=== PATIENT | male | born 1955 | race Caucasian/White ===

== ENCOUNTER → 2017-06-07 | Outpatient (CLI) | payer OTHER ==
[~2017-06-07] MED LIST: ASPI325 PO; ATOR20 PO; Ativan0.5 MG PO; CLON1 PO; DILT30; DULO30 PO; DULO60 PO; HYDACE10B PO; IRBHYD150; LORA1; LORA2 PO; METO25ER; METO25ER PO; METO50ER PO; NAPR550 PO; Nicoderm Cq1 EAC1 TOP; OMEP20ER PO; ONDA8 PO; OPDIVO40 MG/4 ML; PANT20; PRED5 PO; RAMI5 PO; ROSU10TA PO; TAMS.4ER PO; VOTRIENT200 MG PO
== END ==
LOC: PLD 14:02
DX: C67.2 Malignant neoplasm of lateral wall of bladder (principal)
CPT/HCPCS: 88108

== ENCOUNTER 2018-05-19 07:26 | Inpatient (IN) | payer OTHER ==
[~2018-05-19] VITALS: Ht 177.8 cm; Wt 84.5 kg
[2018-05-19 07:45] LABS: Calcium, Ionized (POC) 1.14 mmol/L (1.10-1.46); Chloride (POC) 101 mmol/L (98-108); Creatinine (POC) 1.3 mg/dL (0.8-1.3); Glucose (ISTAT POC) 109 mg/dL (70-99); Potassium (POC) 4.2 mmol/L (3.5-5.5); Sodium (POC) 137 mmol/L (135-148); Total CO2 (POC) 24 mmol/L (21-32)
[2018-05-19 07:52] LABS: Hematocrit 47.1 % (37.0-53.0); Hemoglobin 15.9 g/dL (13.5-17.5); Mean Corpuscular HGB 31.8 pg (26.0-34.0); Mean Corpuscular HGB Conc 33.8 g/dL (31.5-36.5); Mean Corpuscular Volume 94 fL (80-100); Mean Platelet Volume 9.2 fL (9.1-12.4); Platelet Count 408 K/mm3 (150-400); RDW Coefficient Variation 14.5 % (11.7-14.2); RDW Standard Deviation 50.1 fL (35.1-46.3); White Blood Cell Count 10.14 K/mm3 (4.00-11.30)
[2018-05-19 08:16] LABS: International Normalized Ratio 0.93; Prothrombin Time Results 9.4 Sec (9.7-11.5)
[2018-05-19 08:35] LABS: Magnesium, Blood 1.9 mg/dL (1.6-2.4); Troponin I 0.223 ng/mL (0.000-0.040); Very Low Density Lipoprot Chol 46 mg/dL (6-32)
[2018-05-19 08:38] LABS: LDL/HDL RATIO 4.2
[2018-05-19 08:39] LABS: Alanine Aminotransfer (ALT/SGP 17 U/L (12-78); Albumin, Blood 3.7 g/dL (3.4-5.0); Albumin/Globulin Ratio 0.9 (0.8-1.8); Alk Phos 84 U/L (50-136); Anion Gap 11 mmol/L (6-16); Aspartate Aminotrans (AST/SGOT 18 U/L (12-37); Bilirubin, Total 0.6 mg/dL (0.1-1.0); Blood Urea Nitrogen 17 mg/dL (8-24); Bun/Creatinine Ratio 12.6 (12.0-20.0); CHOL/HDL RATIO 6.2; CO2, Blood 24 mmol/L (21-32); Calcium, Blood 9.9 mg/dL (8.5-10.1); Chloride, Blood 101 mmol/L (98-108); Cholesterol 303 mg/dL (50-200); Creatinine, Blood 1.35 mg/dL (0.60-1.20); Globulin, Blood 4.1 g/dL (2.2-4.0); Glomerular Filtration Rate 57 (60-); Glucose, Blood 101 mg/dL (70-99); HDL Cholesterol 49 mg/dL (>39); Low Density Lipoprotein Chol 208 mg/dL (0-110); Potassium, Blood 4.1 mmol/L (3.5-5.5); Sodium, Blood 136 mmol/L (136-145); Total Protein, Blood 7.8 g/dL (6.4-8.2); Triglycerides 231 mg/dL (30-160)
--- NOTE | 2018-05-19 09:13 | NUR ---
PT STATES CP IS 1/10, NTG GTT DECREASED TO 10.
--- NOTE | 2018-05-19 10:33 | NUR ---
PT ADMITTED TO ICU POST ANGIOGRAM FOR STEMI. 2 STENTS PLACED TO M/LAD. PT AWAKE AND ALERT. PT VERY EMOTIONAL, TEARFUL, GREATFUL. PT DENIES C/O PAIN, SOB, CHEST PRESSURE, NAUSEA. TR BAND TO R WRIST WNL, CIRC CHECK TO R WRIST WNL. PT POOR HISTORIAN AND BECAME VERY TEARFUL AND DISTRESSED WHEN HOME MEDICATIONS REVIEWED, WILL COMPLETE LATER WHEN PT HAS RELAXED MORE. DR GARCIA AT BEDSIDE, POST ANGIO EKG REVIEWED. NS AT 50CC/HR, HEPARIN GTT TO START.
--- NOTE | 2018-05-19 10:55 | NUR ---
HEPARIN GTT STARTED 13/UNIT/KG/HR. ESCORT VEHICLE DRIVER AT BEDSIDE.
--- NOTE | 2018-05-19 11:01 | NUR ---
TROPONIN CALLED IN TO DR GARCIA, NO NEED TO CALL NEXT TROPONIN IN TO DR IF NEXT TROPONIN IS LESS THAN [address] GARCIA.
--- NOTE | 2018-05-19 13:14 | NUR ---
AIR SLOWLY RELEASED FROM TR BAND OVER 45MIN. BAND ON WRIST; NO BLEEDING OR SWELLING, OR PAIN TO SITE. DR SIMMONS IN TO SEE PT.
--- NOTE | 2018-05-19 13:34 | NUR ---
ECHOCARDIOGRAM COMPLETE
--- NOTE | 2018-05-19 16:23 | NUR ---
TR BAND REMOVED, CLEAR OP-SITE PLACED OVER PUNCTURE SITE, WRIST IMMOBILIZER PLACED. PT GIVEN INSTRUCTIONS AGAIN, NOT TO USE RIGHT ARM/WRIST
--- NOTE | 2018-05-19 19:18 | NUR ---
DR GARCIA CALLED AT 1900 TO INFORM OF TROPONIN 126, PT C/O HEART BURN TO UPPER ESOPHAGUS AREA, 15 BEAT RUN OF VT, SOME PVC'S T/O SHIFT. COMPLETE UPDATE ON PT'S STATUS GIVEN. REPORT GIVEN TO MAISHA MARKS.
--- NOTE | 2018-05-19 19:30 | NUR ---
ASSUMED CARE BEDSIDE REPORT RECIEVED. PT IS RESTING IN BED WITH CPAP IN PLACE. PT AWAKENS EASILY AND IS ALERT AND ORIENTED. PT COMPLAINS OF HEART BURN, BUT DENIES CHEST PRESSURE/PAIN OR NAUSEA. DAY SHIFT RN CALLED DR GARCIA TO NOTIFY OF CRITICAL TROPONIN AND PT COMPLAINTS. ORDERS RECIEVED. WILL MEDICATE PER ORDERS. VITAL SIGNS STABLE AT THIS TIME. PT SINUS TOBI/ NSR. HEPARIN GTT INFUSING AT 13 UNITS/KG/HR PER PHARMACY, NS INFUSING AT 50 ML/HR. PT USING URINAL TO VOID WELL. WILL CONTINUE TO MONITOR.
[2018-05-19 19:45] LABS: Magnesium, Blood 1.8 mg/dL (1.6-2.4)
--- NOTE | 2018-05-20 00:04 | NUR ---
UPDATE PT REPORTS HEART BURN/INDIGESTION HAS RESOLVED. PT DENIES CHEST PAIN OR PRESSURE. PT SLEEPING OFF AND ON UP TO THIS POINT. VSS. WILL CONTINUE TO MONITOR.
[2018-05-20 04:01] LABS: BASOPHILS ABSOLUTE AUTO 0.17 K/mm3 (0.00-0.23); BASOPHILS PERCENT AUTO 2 % (0-2); EOSINOPHILS ABSOLUTE AUTO 0.98 K/mm3 (0.00-0.68); EOSINOPHILS PERCENT AUTO 9 % (0-6); Hematocrit 44.6 % (37.0-53.0); Hemoglobin 15.1 g/dL (13.5-17.5); IMMATURE GRAN ABSOLUTE AUTO 0.03 K/mm3 (0.00-0.10); IMMATURE GRAN PERCENT AUTO 0 % (0-1); LYMPHOCYTES ABSOLUTE AUTO 2.29 K/mm3 (0.84-5.20); LYMPHOCYTES PERCENT AUTO 22 % (21-46); MONOCYTES ABSOLUTE AUTO 1.48 K/mm3 (0.16-1.47); MONOCYTES PERCENT AUTO 14 % (4-13); Mean Corpuscular HGB 31.7 pg (26.0-34.0); Mean Corpuscular HGB Conc 33.9 g/dL (31.5-36.5); Mean Corpuscular Volume 94 fL (80-100); Mean Platelet Volume 9.5 fL (9.1-12.4); NEUTROPHILS ABSOLUTE AUTO 5.56 K/mm3 (1.96-9.15); NEUTROPHILS PERCENT AUTO 53 % (41-73); Platelet Count 389 K/mm3 (150-400); RDW Coefficient Variation 14.6 % (11.7-14.2); RDW Standard Deviation 50.7 fL (35.1-46.3); Red Blood Cell Count 4.76 M/mm3 (4.30-5.90); White Blood Cell Count 10.51 K/mm3 (4.00-11.30)
[2018-05-20 04:47] LABS: Alanine Aminotransfer (ALT/SGP 44 U/L (12-78); Albumin, Blood 3.3 g/dL (3.4-5.0); Albumin/Globulin Ratio 0.9 (0.8-1.8); Alk Phos 70 U/L (50-136); Anion Gap 10 mmol/L (6-16); Aspartate Aminotrans (AST/SGOT 236 U/L (12-37); Blood Urea Nitrogen 12 mg/dL (8-24); Bun/Creatinine Ratio 9.7 (12.0-20.0); CO2, Blood 24 mmol/L (21-32); Calcium, Blood 8.9 mg/dL (8.5-10.1); Chloride, Blood 105 mmol/L (98-108); Creatinine, Blood 1.24 mg/dL (0.60-1.20); Globulin, Blood 3.7 g/dL (2.2-4.0); Glomerular Filtration Rate >60 (60-); Glucose, Blood 112 mg/dL (70-99); Potassium, Blood 4.3 mmol/L (3.5-5.5); Sodium, Blood 139 mmol/L (136-145)
--- NOTE | 2018-05-20 06:11 | NUR ---
SHIFT SUMMARY PT SLEPT OFF AND ON THROUGHOUT MOST OF THIS SHIFT. PT HAS REMAINED ON CPAP TO ROOM AIR WHILE SLEEPING THROUGHOUT THE NIGHT. VITAL SIGNS HAVE REMAINED STABLE. PT HAS CONTINUED TO DENY CHEST PAIN OR PRESSURE, NAUSEA, OR HEARTBURN. TROPONIN TRENDING DOWN. MORNING ECG SHOWES ST CHANGES WHEN COMPARED TO PREVIOUS ECG'S. PT WITH ONE 5 BEAT RUN OF V TACH EARLY IN THE SHIFT, OTHERWISE HAS REMAINED IN NSR. RIGHT RADIAL ACCESS SITE REMAINS C/D/I, SOFT, NON TENDER, WITH ARMBOARD IN PLACE. HEPARIN GTT INCREASED TO 16 UNITS/KG/HR PER PHARMACY ORDERS AND BOLUS GIVEN PER ORDERS. PT VOIDING WELL WITH URINAL. PT TOLERATING PO FLUIDS WELL. WILL CONTINUE TO MONITOR AND REPORT OFF TO ONCOMING RN.
--- NOTE | 2018-05-20 07:24 | NUR ---
REPORT TAKEN, PT ASSESSED. PT AWAKE AND ALERT. DENIES ALL COMPLAINTS, DENIES C/O CHEST PAIN, CHEST PRESSURE, SOB, NAUSEA, HEART BURN. VSS. DR GARCIA CALLED AND GIVEN UPDATE ON PT STATUS INCLUDING NEW CHANGES IN EKG THIS AM. NO NEW ORDERS. WILL CONT TO MONITOR CLOSELY.
--- NOTE | 2018-05-20 09:48 | NUR ---
DR GARCIA IN TO SEE PT. PT MAY CHANGE STATUS TO PCU IF HE CONTINUES TO DO WELL TODAY. POSSIBLE DISCHARGE HOME TOMORROW. AT BEDSIDE; UPDATED
--- NOTE | 2018-05-20 13:51 | NUR ---
DR GARCIA CALLED AND GIVEN UPDATE. PT OOB TO CHAIR FOR 4 HOURS, TOLERATED WELL. ATE LUNCH. FAMILY AT BEDSIDE. PT W/O COMPLAINTS. PT NOW PCU STATUS
--- NOTE | 2018-05-20 22:36 | NUR ---
ASSUMED CARE OF PT PT ALERT AND ORIENTED LAYING IN BED RESTING USING HOME CPAP. PT DENIES PAIN AT THIS TIME. SEE FULL SHIFT ASSESSMENT.
[2018-05-21 03:54] LABS: Hematocrit 44.4 % (37.0-53.0); Hemoglobin 15.2 g/dL (13.5-17.5); Mean Corpuscular HGB 32.1 pg (26.0-34.0); Mean Corpuscular HGB Conc 34.2 g/dL (31.5-36.5); Mean Corpuscular Volume 94 fL (80-100); Mean Platelet Volume 9.3 fL (9.1-12.4); Platelet Count 352 K/mm3 (150-400); RDW Coefficient Variation 14.6 % (11.7-14.2); RDW Standard Deviation 50.4 fL (35.1-46.3); Red Blood Cell Count 4.74 M/mm3 (4.30-5.90); White Blood Cell Count 11.08 K/mm3 (4.00-11.30)
[2018-05-21 04:15] LABS: Albumin, Blood 3.3 g/dL (3.4-5.0); Albumin/Globulin Ratio 0.8 (0.8-1.8); Bilirubin, Total 0.8 mg/dL (0.1-1.0); Bun/Creatinine Ratio 9.2 (12.0-20.0); Creatinine, Blood 1.3 mg/dL (0.60-1.20); Total Protein, Blood 7.3 g/dL (6.4-8.2)
--- NOTE | 2018-05-21 06:25 | NUR ---
SHIFT SUMMARY NO ACUTE CHANGES OVERNIGHT. PT SLEPT ENTIRE NIGHT WITH CPAP. PT DENIES CHEST PAIN N/V. HEPARIN AT 16 UN/KG/HR. VITAL SIGNS REMAIN STABLE. WILL REPORT TO DAYSHIFT NURSE.
--- NOTE | 2018-05-21 08:46 | NUR ---
ASSUMED CARE OF PT THIS AM PT. ALERT AND ORIENTED. ASSISTED PT WITH LINES TO DANGLE AT BEDSIDE AND WAS ABLE TO TRANSFER SELF TO BEDSIDE CHAIR WITH OUT DIFFICULTY. PT. UP TO BEDSIDE CHAIR FOR BREAKFAST. RIGHT RADIAL SITE WNL, NO SWELLING/ BRUISING NOTED. PT VSS THIS AM DENIES ANY CHEST PAIN OR PRESSURE. REMAINS ON HEPARIN GTT AT THIS TIME AT 16U/KG/HR. URINAL AT BEDSIDE. CALL LIGHT IN REACH.
[2018-05-21] MEDS ORDERED: ATOR40TA PO (10:43)
[2018-05-21] MEDS ORDERED: ASPI81CH PO (10:44)
[2018-05-21] MEDS ORDERED: CALCA400CH PO (10:44)
[2018-05-21] MEDS ORDERED: FAMO20 PO (10:45)
[2018-05-21] MEDS ORDERED: CLOP75 PO (10:45)
[2018-05-21] MEDS ORDERED: METO25ER PO (10:46)
--- NOTE | 2018-05-21 11:10 | NUR ---
PT DISCHARGED HOME MEDICATIONS CALLED IN TO [facility] PER PT REQUEST. PT VSS UPON DISCHARGE. DISCUSSED WITH PT IN DETAIL MEDICATION CHANGES. PT PLACED STENT CARD IN [place]. INITIAL FOLLOW UP SCHEDULED WITH CARDIOLOGY. [facility] CONTACTED FOR REFERRAL THEY WILL CALL PT TO SCHEDULE APPOINTMENT. ENCOURGED PT TO RETURN FOR WORSENING SYMPTOMS. TO DRIVE PT HOME. PT ABLE TO DRESS SELF AND REQUESTED TO AMBULATE TO EXIT.
== END 2018-05-21 11:05 | disposition home or self-care (01) | DRG 247 ==
LOC: ER 07:26 → ICUW 08:14 → ICUE 08:14
PROVIDERS: Emergency Medicine; ADMIT Emergency Medicine
PROC: 027035Z Dilation of Coronary Artery, One Artery with Two Drug-eluting Intraluminal Devices, Percutaneous Approach (ICD-10-PCS; principal; 2018-05-19)
PROC: B2111ZZ Fluoroscopy of Multiple Coronary Arteries using Low Osmolar Contrast (ICD-10-PCS; 2018-05-19)
DX: I21.09 ST elevation (STEMI) myocardial infarction involving other coronary artery of anterior wall (principal); I42.9 Cardiomyopathy, unspecified; I12.9 Hypertensive chronic kidney disease with stage 1 through stage 4 chronic kidney disease, or unspecified chronic kidney disease; N18.3 Chronic kidney disease, stage 3 (moderate); I25.10 Atherosclerotic heart disease of native coronary artery without angina pectoris; E78.5 Hyperlipidemia, unspecified; G47.33 Obstructive sleep apnea (adult) (pediatric); Z85.53 Personal history of malignant neoplasm of renal pelvis; Z92.21 Personal history of antineoplastic chemotherapy; Z95.5 Presence of coronary angioplasty implant and graft
CPT/HCPCS: 36415; 71045; 80047; 80053; 80061; 83735; 84132; 84484; 85014; 85025; 85027; 85347; 85610; 85730; 86850; 86900; 86901; 93005; 93010; 93458; 96374; 96375; 99152; 99153; 99285-25; C1725; C1757; C1769; C1874; C1887; C1894; C8923; C9606; J1644; J2250; J2270; J2405; J3010; J7030; J7040; Q9957; Q9967

== ENCOUNTER 2018-05-27 16:41 | Observation (INO) | payer OTHER ==
[~2018-05-27] VITALS: Ht 177.8 cm; Wt 85.6 kg
[~2018-05-27 16:41] MED LIST changes: +ASPI81CH PO; +ATOR40TA PO; +CALCA400CH PO; +CLOP75 PO; +FAMO20 PO
[2018-05-27 17:15] LABS: Creatinine (POC) 1.5 mg/dL (0.8-1.3)
[2018-05-27 17:15] LABS: BASOPHILS ABSOLUTE AUTO 0.16 K/mm3 (0.00-0.23); BASOPHILS PERCENT AUTO 2 % (0-2); EOSINOPHILS ABSOLUTE AUTO 0.44 K/mm3 (0.00-0.68); EOSINOPHILS PERCENT AUTO 5 % (0-6); Hematocrit 41.7 % (37.0-53.0); Hemoglobin 13.8 g/dL (13.5-17.5); IMMATURE GRAN ABSOLUTE AUTO 0.06 K/mm3 (0.00-0.10); IMMATURE GRAN PERCENT AUTO 1 % (0-1); LYMPHOCYTES ABSOLUTE AUTO 1.92 K/mm3 (0.84-5.20); LYMPHOCYTES PERCENT AUTO 20 % (21-46); MONOCYTES ABSOLUTE AUTO 0.84 K/mm3 (0.16-1.47); MONOCYTES PERCENT AUTO 9 % (4-13); Mean Corpuscular HGB Conc 33.1 g/dL (31.5-36.5); Mean Platelet Volume 9.6 fL (9.1-12.4); NEUTROPHILS ABSOLUTE AUTO 6.33 K/mm3 (1.96-9.15); NEUTROPHILS PERCENT AUTO 65 % (41-73); Platelet Count 405 K/mm3 (150-400); RDW Coefficient Variation 14.3 % (11.7-14.2); RDW Standard Deviation 51.3 fL (35.1-46.3); Red Blood Cell Count 4.31 M/mm3 (4.30-5.90); White Blood Cell Count 9.75 K/mm3 (4.00-11.30)
[2018-05-27 17:21] LABS: Mean Corpuscular Volume 97 fL (80-100)
[2018-05-27 17:32] LABS: International Normalized Ratio 0.93; Prothrombin Time Results 9.7 Sec (9.7-11.5)
[2018-05-27 17:41] LABS: Albumin, Blood 3.6 g/dL (3.4-5.0); Albumin/Globulin Ratio 0.9 (0.8-1.8); Bilirubin, Total 0.3 mg/dL (0.1-1.0); Bun/Creatinine Ratio 16.9 (12.0-20.0); Calcium, Blood 8.5 mg/dL (8.5-10.1); Creatinine, Blood 1.3 mg/dL (0.60-1.20); Globulin, Blood 4.2 g/dL (2.2-4.0); Potassium, Blood 4.5 mmol/L (3.5-5.5); Total Protein, Blood 7.8 g/dL (6.4-8.2)
--- NOTE | 2018-05-27 21:40 | NUR ---
NEW ADMIT FROM ER FOR GIB. PT WAS GIVEN PROTONIX BOLUS AND DRIP INFUSING. DENIES ANY COMPLAINTS. ALREADY CALLED AND SPOKE WITH DR. LEWIS WHO STATES WILL BE IN TOMORROW TO CONSULT WITH PT.
[2018-05-27 23:22] LABS: Hematocrit 41.9 % (37.0-53.0); Hemoglobin 14.1 g/dL (13.5-17.5)
--- NOTE | 2018-05-28 02:59 | NUR ---
TELE MONITOR CALLED STATES PT DROPPED TO 39HR. PT DENIES ANY COMPLAINTS. CALLED AND SPOKE WITH DR. HARDEN WHO DC'D THE BETA JOSE. WILL CONT TO MONITOR FOR CHANGES.
--- NOTE | 2018-05-28 05:26 | NUR ---
NEW ADMIT THIS SHIFT. NO SIG CHANGES. H/H IS STABLE. DENIES ANY PAIN. PT HAS HAD NO BM SINCE ARRIVAL TO UNIT. DR. LEWIS HAS BEEN CONTACTED AND WILL SEE PT TODAY. CONT IV PROTONIX DRIP, DC'D BETA JOSE FOR BRADYCARDIA PER DR. HARDEN. CALL LIGHT IN REACH.
[2018-05-28 06:16] LABS: BASOPHILS ABSOLUTE AUTO 0.17 K/mm3 (0.00-0.23); BASOPHILS PERCENT AUTO 2 % (0-2); EOSINOPHILS ABSOLUTE AUTO 0.91 K/mm3 (0.00-0.68); EOSINOPHILS PERCENT AUTO 10 % (0-6); Hematocrit 43.1 % (37.0-53.0); Hemoglobin 14.1 g/dL (13.5-17.5); IMMATURE GRAN ABSOLUTE AUTO 0.04 K/mm3 (0.00-0.10); IMMATURE GRAN PERCENT AUTO 1 % (0-1); LYMPHOCYTES ABSOLUTE AUTO 2.43 K/mm3 (0.84-5.20); LYMPHOCYTES PERCENT AUTO 28 % (21-46); MONOCYTES ABSOLUTE AUTO 1.08 K/mm3 (0.16-1.47); MONOCYTES PERCENT AUTO 12 % (4-13); Mean Corpuscular HGB 31.8 pg (26.0-34.0); Mean Corpuscular HGB Conc 32.7 g/dL (31.5-36.5); Mean Corpuscular Volume 97 fL (80-100); Mean Platelet Volume 9.8 fL (9.1-12.4); NEUTROPHILS ABSOLUTE AUTO 4.16 K/mm3 (1.96-9.15); NEUTROPHILS PERCENT AUTO 47 % (41-73); Platelet Count 401 K/mm3 (150-400); RDW Coefficient Variation 14.5 % (11.7-14.2); RDW Standard Deviation 51.8 fL (35.1-46.3); Red Blood Cell Count 4.44 M/mm3 (4.30-5.90); White Blood Cell Count 8.79 K/mm3 (4.00-11.30)
[2018-05-28 07:16] LABS: Albumin, Blood 3.4 g/dL (3.4-5.0); Albumin/Globulin Ratio 0.9 (0.8-1.8); Calcium, Blood 8.7 mg/dL (8.5-10.1); Creatinine, Blood 1.25 mg/dL (0.60-1.20); Globulin, Blood 3.6 g/dL (2.2-4.0); Potassium, Blood 4.1 mmol/L (3.5-5.5)
[2018-05-28 07:17] LABS: Bilirubin, Total 0.5 mg/dL (0.1-1.0)
[2018-05-28] MEDS ORDERED: OMEPRAZOLE MAGN20 MG PO (14:41)
--- NOTE | 2018-05-28 15:06 | NUR ---
DISCHARGE SUMMARY PT A&OX4, VSS, WALKED OFF LEFT FLOOR WITH ALL PERSONAL POSSESSIONS INCLUDING DISCHARGE PACKET TO GO HOME. DISCHARGE INSTRUCTIONS PROVIDED. PT REP UNDERSTANDING THOSE INSTRUCTIONS INCLUDING NEW SCRIPT AT [facility], FU APPT AT [facility] ALREADY SCHEDULED. 2 TIFF YOUNG.
== END 2018-05-28 16:20 | disposition home or self-care (01) ==
LOC: ER 16:41 → SURS 16:42 → ERHOLD 16:42 → SURS 20:13
PROVIDERS: Emergency Medicine; ADMIT Internal Medicine
DX: K92.1 Melena (principal); I12.9 Hypertensive chronic kidney disease with stage 1 through stage 4 chronic kidney disease, or unspecified chronic kidney disease; N18.3 Chronic kidney disease, stage 3 (moderate); C64.9 Malignant neoplasm of unspecified kidney, except renal pelvis; I25.10 Atherosclerotic heart disease of native coronary artery without angina pectoris; E78.5 Hyperlipidemia, unspecified; G47.33 Obstructive sleep apnea (adult) (pediatric); Z79.52 Long term (current) use of systemic steroids; Z79.899 Other long term (current) drug therapy; Z95.5 Presence of coronary angioplasty implant and graft; Z85.528 Personal history of other malignant neoplasm of kidney; Z90.5 Acquired absence of kidney; Z99.89 Dependence on other enabling machines and devices; Z79.82 Long term (current) use of aspirin; Z79.02 Long term (current) use of antithrombotics/antiplatelets
CPT/HCPCS: 36415; 80053; 82272; 82565; 85014; 85018; 85025; 85610; 85730; 86850; 86900; 86901; 93005; 93010; 96365; 96366; 96376; 99285-25; C9113; G0378

== ENCOUNTER → 2018-07-14 | Outpatient (CLI) | payer OTHER ==
[~2018-07-14] MED LIST changes: +OMEPRAZOLE MAGN20 MG PO
[2018-07-14 14:10] LABS: Stool Occult Bld Immuno 1 Positive (NEGATIVE)
== END | disposition home or self-care (01) ==
LOC: LAB 09:31 → LAB SHORT 09:31
PROVIDERS: Family Medicine
DX: R19.5 Other fecal abnormalities (principal)
CPT/HCPCS: 82274

== ENCOUNTER 2018-08-13 10:31 | Day surgery (SDC) | payer OTHER ==
[~2018-08-13] VITALS: Ht 177.8 cm; Wt 91.0 kg
--- NOTE | 2018-08-13 12:13 | NUR ---
08/13/[address] CONSULTED. OK TO PROCEED WITH NURSE SEDATION WITH FENTANYL AND VERSED. DR. LEWIS AGREES.
--- NOTE | 2018-08-13 14:26 | NUR ---
08/13/18 [address] LEWIS/ DR. ARTHUR PROCEDURE COMPLETED WITH VERSED. PT AWAKE DURING PROCEDURE. PT GAGGING T/O PROCEDURE. ORALLY SUCTIONED SMALL AMOUNT OF SECRETIONS. PT TOLERATED PROCEDURE WELL. VSS.
== END 2018-08-13 12:55 | disposition home or self-care (01) ==
LOC: ORSCSDS 10:31
PROVIDERS: Internal Medicine Gastroenterology
PROC: 0DB68ZX Excision of Stomach, Via Natural or Artificial Opening Endoscopic, Diagnostic (ICD-10-PCS; principal; 2018-08-13 14:15)
DX: K92.1 Melena (principal); K29.40 Chronic atrophic gastritis without bleeding; K44.9 Diaphragmatic hernia without obstruction or gangrene; I25.10 Atherosclerotic heart disease of native coronary artery without angina pectoris; I10 Essential (primary) hypertension; I25.2 Old myocardial infarction; Z79.01 Long term (current) use of anticoagulants; Z85.528 Personal history of other malignant neoplasm of kidney; Z79.82 Long term (current) use of aspirin; Z79.899 Other long term (current) drug therapy; Z87.891 Personal history of nicotine dependence
CPT/HCPCS: 88305; 88342; J2250; J2704; J3010; J7120

== ENCOUNTER 2018-10-08 10:48 | Emergency (ER) | payer OTHER ==
[~2018-10-08] VITALS: Ht 177.8 cm; Wt 87.5 kg
== END 2018-10-08 11:21 | disposition left against medical advice (07) ==
LOC: ER 10:48
DX: Z53.21 Procedure and treatment not carried out due to patient leaving prior to being seen by health care provider (principal)

== ENCOUNTER 2018-12-13 01:20 | Emergency (ER) | payer OTHER ==
[~2018-12-13] VITALS: Ht 177.8 cm; Wt 90.7 kg
[2018-12-13] MEDS ORDERED: DIAZ5 PO (01:37)
[2018-12-13] MEDS ORDERED: HYDR1TAB94 PO (01:38)
[2018-12-13] MEDS ORDERED: PRED5 PO (01:45)
[2018-12-13] MEDS ORDERED: TAMS.4ER PO (01:45)
== END 2018-12-13 02:25 | disposition home or self-care (01) ==
LOC: ER 01:20
DX: M25.511 Pain in right shoulder (principal); I12.9 Hypertensive chronic kidney disease with stage 1 through stage 4 chronic kidney disease, or unspecified chronic kidney disease; N18.9 Chronic kidney disease, unspecified; E78.5 Hyperlipidemia, unspecified; C64.9 Malignant neoplasm of unspecified kidney, except renal pelvis; Z87.891 Personal history of nicotine dependence; Z79.899 Other long term (current) drug therapy; Z79.82 Long term (current) use of aspirin; Z79.02 Long term (current) use of antithrombotics/antiplatelets
CPT/HCPCS: 96372; 99283-25; J1170

== ENCOUNTER 2019-08-07 04:31 | Emergency (ER) | payer OTHER ==
[~2019-08-07] VITALS: Ht 177.8 cm; Wt 83.9 kg
[~2019-08-07 04:31] MED LIST changes: +DIAZ5 PO; +HYDR1TAB94 PO
[2019-08-07 05:06] LABS: BASOPHILS ABSOLUTE AUTO 0.14 K/mm3 (0.00-0.23); BASOPHILS PERCENT AUTO 1 % (0-2); EOSINOPHILS ABSOLUTE AUTO 0.62 K/mm3 (0.00-0.68); EOSINOPHILS PERCENT AUTO 6 % (0-6); Hematocrit 46.7 % (37.0-53.0); Hemoglobin 15.8 g/dL (13.5-17.5); IMMATURE GRAN ABSOLUTE AUTO 0.04 K/mm3 (0.00-0.10); IMMATURE GRAN PERCENT AUTO 0 % (0-1); LYMPHOCYTES ABSOLUTE AUTO 1.55 K/mm3 (0.84-5.20); LYMPHOCYTES PERCENT AUTO 14 % (21-46); MONOCYTES ABSOLUTE AUTO 1.33 K/mm3 (0.16-1.47); MONOCYTES PERCENT AUTO 12 % (4-13); Mean Corpuscular HGB 30.5 pg (26.0-34.0); Mean Corpuscular HGB Conc 33.8 g/dL (31.5-36.5); Mean Corpuscular Volume 90 fL (80-100); Mean Platelet Volume 9.4 fL (9.1-12.4); NEUTROPHILS ABSOLUTE AUTO 7.65 K/mm3 (1.96-9.15); NEUTROPHILS PERCENT AUTO 68 % (41-73); Platelet Count 429 K/mm3 (150-400); RDW Coefficient Variation 16.4 % (11.7-14.2); RDW Standard Deviation 54.6 fL (35.1-46.3); Red Blood Cell Count 5.18 M/mm3 (4.30-5.90); White Blood Cell Count 11.33 K/mm3 (4.00-11.30)
[2019-08-07 05:23] LABS: Albumin, Blood 3.5 g/dL (3.4-5.0); Albumin/Globulin Ratio 0.7 (0.8-1.8); Bilirubin, Total 0.8 mg/dL (0.1-1.0); Bun/Creatinine Ratio 14.8 (12.0-20.0); Calcium, Blood 9.7 mg/dL (8.5-10.1); Creatinine, Blood 1.35 mg/dL (0.60-1.20); Total Protein, Blood 8.5 g/dL (6.4-8.2)
== END 2019-08-07 05:51 | disposition home or self-care (01) ==
LOC: ER 04:31
PROVIDERS: Emergency Medicine
DX: K08.89 Other specified disorders of teeth and supporting structures (principal); E86.0 Dehydration; I25.2 Old myocardial infarction; Z79.899 Other long term (current) drug therapy; Z79.82 Long term (current) use of aspirin; Z95.5 Presence of coronary angioplasty implant and graft; Z87.891 Personal history of nicotine dependence
CPT/HCPCS: 80053; 83690; 85025; 96374; 96375; 99284-25; J2405; J3010

== ENCOUNTER → 2020-03-30 | Outpatient (CLI) | payer OTHER | LOC: LAB SHORT 07:49 → PLD 07:49 | DX: L57.0 Actinic keratosis (principal) | CPT/HCPCS: 88305 ==

== ENCOUNTER → 2020-10-12 | Outpatient (CLI) | payer OTHER ==
[2020-10-12 09:44] LABS: BASOPHILS ABSOLUTE AUTO 0.19 K/mm3 (0.00-0.23); BASOPHILS PERCENT AUTO 2 % (0-2); EOSINOPHILS ABSOLUTE AUTO 1.77 K/mm3 (0.00-0.68); EOSINOPHILS PERCENT AUTO 15 % (0-6); Hematocrit 45.6 % (37.0-53.0); Hemoglobin 15.6 g/dL (13.5-17.5); IMMATURE GRAN ABSOLUTE AUTO 0.04 K/mm3 (0.00-0.10); IMMATURE GRAN PERCENT AUTO 0 % (0-1); LYMPHOCYTES ABSOLUTE AUTO 1.99 K/mm3 (0.84-5.20); LYMPHOCYTES PERCENT AUTO 17 % (21-46); MONOCYTES ABSOLUTE AUTO 1.13 K/mm3 (0.16-1.47); MONOCYTES PERCENT AUTO 10 % (4-13); Mean Corpuscular HGB 32.9 pg (26.0-34.0); Mean Corpuscular HGB Conc 34.2 g/dL (31.5-36.5); Mean Corpuscular Volume 96 fL (80-100); Mean Platelet Volume 9.3 fL (9.1-12.4); NEUTROPHILS ABSOLUTE AUTO 6.64 K/mm3 (1.96-9.15); NEUTROPHILS PERCENT AUTO 57 % (41-73); Platelet Count 348 K/mm3 (150-400); RDW Coefficient Variation 14.8 % (11.7-14.2); RDW Standard Deviation 52.3 fL (35.1-46.3); Red Blood Cell Count 4.74 M/mm3 (4.30-5.90); White Blood Cell Count 11.76 K/mm3 (4.00-11.30)
[2020-10-12 10:01] LABS: Albumin, Blood 3.7 g/dL (3.4-5.0); Albumin/Globulin Ratio 0.9 (0.8-1.8); Bilirubin, Total 0.6 mg/dL (0.1-1.0); Calcium, Blood 8.9 mg/dL (8.5-10.1); Creatinine, Blood 1.33 mg/dL (0.60-1.20); Total Protein, Blood 7.7 g/dL (6.4-8.2)
== END | disposition home or self-care (01) ==
LOC: LAB SHORT 09:39 → LAB 09:39
PROVIDERS: Physician Assistant Medical
DX: K92.1 Melena (principal)
CPT/HCPCS: 80053; 85025

== ENCOUNTER → 2021-07-25 | Outpatient (CLI) | payer OTHER ==
[2021-07-25 17:12] LABS: BASOPHILS ABSOLUTE AUTO 0.11 K/mm3 (0.00-0.23); BASOPHILS PERCENT AUTO 1 % (0-2); EOSINOPHILS ABSOLUTE AUTO 0.48 K/mm3 (0.00-0.68); EOSINOPHILS PERCENT AUTO 5 % (0-6); Hematocrit 46.2 % (37.0-53.0); Hemoglobin 15.8 g/dL (13.5-17.5); IMMATURE GRAN ABSOLUTE AUTO 0.04 K/mm3 (0.00-0.10); IMMATURE GRAN PERCENT AUTO 0 % (0-1); LYMPHOCYTES ABSOLUTE AUTO 1.44 K/mm3 (0.84-5.20); LYMPHOCYTES PERCENT AUTO 14 % (21-46); MONOCYTES ABSOLUTE AUTO 1.33 K/mm3 (0.16-1.47); MONOCYTES PERCENT AUTO 12 % (4-13); Mean Corpuscular HGB 33.2 pg (26.0-34.0); Mean Corpuscular HGB Conc 34.2 g/dL (31.5-36.5); Mean Corpuscular Volume 97 fL (80-100); Mean Platelet Volume 9.5 fL (9.1-12.4); NEUTROPHILS PERCENT AUTO 68 % (41-73); NRBC ABSOLUTE 0.02 K/mm3 (0.00-0.02); NRBC Auto 0.2 /100 WBC (0.0-0.2); Platelet Count 335 K/mm3 (150-400); RDW Coefficient Variation 14.5 % (11.7-14.2); RDW Standard Deviation 51.9 fL (35.1-46.3); Red Blood Cell Count 4.76 M/mm3 (4.30-5.90)
[2021-07-25 17:29] LABS: Bilirubin, Total 0.9 mg/dL (0.1-1.0); Bun/Creatinine Ratio 12.7 (12.0-20.0); Calcium, Blood 9.1 mg/dL (8.5-10.1); Creatinine, Blood 1.42 mg/dL (0.60-1.20); Globulin, Blood 4.1 g/dL (2.2-4.0); Potassium, Blood 4.6 mmol/L (3.5-5.5); Total Protein, Blood 8.1 g/dL (6.4-8.2)
== END ==
LOC: LAB SHORT 17:07 → LAB 17:07
PROVIDERS: General Practice
DX: L03.032 Cellulitis of left toe (principal)
CPT/HCPCS: 80053; 84550; 85025

== ENCOUNTER → 2021-07-27 | Outpatient (CLI) | payer OTHER ==
[2021-07-27 17:11] LABS: Uric Acid, Urine 26.2 mg/dL (7.5-49.5)
== END | disposition home or self-care (01) ==
LOC: LAB 08:00 → LAB SHORT 08:00
PROVIDERS: General Practice
DX: L03.032 Cellulitis of left toe (principal)
CPT/HCPCS: 84560

== ENCOUNTER → 2021-08-18 | Outpatient (CLI) | payer OTHER | END | disposition home or self-care (01) | LOC: LAB SHORT 14:32 | DX: L30.8 Other specified dermatitis (principal) | CPT/HCPCS: 88305; 88312 ==

== ENCOUNTER 2022-04-04 11:02 | Emergency (ER) | payer OTHER ==
[~2022-04-04] VITALS: Ht 177.8 cm; Wt 88.5 kg
[2022-04-04] MEDS ORDERED: WARF5 PO (12:13)
[2022-04-04] MEDS ORDERED: EZET10 (12:15)
== END 2022-04-04 12:23 | disposition home or self-care (01) ==
LOC: ER 11:02
DX: I82.461 Acute embolism and thrombosis of right calf muscular vein (principal); I12.9 Hypertensive chronic kidney disease with stage 1 through stage 4 chronic kidney disease, or unspecified chronic kidney disease; N18.30 Chronic kidney disease, stage 3 unspecified; E78.5 Hyperlipidemia, unspecified; I25.10 Atherosclerotic heart disease of native coronary artery without angina pectoris; G47.33 Obstructive sleep apnea (adult) (pediatric); Z87.891 Personal history of nicotine dependence; Z79.82 Long term (current) use of aspirin; Z79.899 Other long term (current) drug therapy; Z79.01 Long term (current) use of anticoagulants
CPT/HCPCS: 93971; A9270

== ENCOUNTER 2022-04-16 08:27 | Emergency (ER) | payer OTHER ==
[~2022-04-16] VITALS: Ht 177.8 cm; Wt 88.5 kg
[~2022-04-16 08:27] MED LIST changes: +EZET10; +WARF5 PO
[2022-04-16 09:49] LABS: Hematocrit 37.7 % (37.0-53.0); Hemoglobin 11.9 g/dL (13.5-17.5); Mean Corpuscular HGB 24.4 pg (26.0-34.0); Mean Corpuscular HGB Conc 31.6 g/dL (31.5-36.5); Mean Corpuscular Volume 77 fL (80-100); Platelet Count 374 K/mm3 (150-400); RDW Coefficient Variation 24.5 % (11.7-14.2); RDW Standard Deviation 66.6 fL (35.1-46.3); Red Blood Cell Count 4.87 M/mm3 (4.30-5.90)
[2022-04-16 09:50] LABS: Albumin, Blood 3.6 g/dL (3.4-5.0); Albumin/Globulin Ratio 0.9 (0.8-1.8); Bilirubin, Total 1.1 mg/dL (0.1-1.0); Bun/Creatinine Ratio 17.7 (12.0-20.0); Creatinine, Blood 0.96 mg/dL (0.60-1.20); Globulin, Blood 3.8 g/dL (2.2-4.0); Potassium, Blood 4.2 mmol/L (3.5-5.5); Total Protein, Blood 7.4 g/dL (6.4-8.2)
[2022-04-16 09:51] LABS: International Normalized Ratio 2.55; Prothrombin Time Results 25.2 Sec (9.7-11.5)
[2022-04-16 09:56] LABS: NRBC ABSOLUTE 0.74 K/mm3 (0.00-0.02); White Blood Cell Count 12.32 K/mm3 (4.00-11.30)
[2022-04-16 10:03] LABS: BAND PERCENT MAN 1 % (0-8); BASOPHILS ABSOLUTE MAN 0.24 K/mm3 (0.00-0.23); BASOPHILS PERCENT MAN 2 % (0-2); EOSINOPHILS ABSOLUTE MAN 2.83 K/mm3 (0.00-0.68); EOSINOPHILS PERCENT MAN 23 % (0-6); LYMPHOCYTES % ATYPICAL MANUAL 1 % (0-0); LYMPHOCYTES ABSOLUTE MAN 1.72 K/mm3 (0.84-5.20); LYMPHOCYTES PERCENT MAN 13 % (21-46); MONOCYTES ABSOLUTE MAN 0.73 K/mm3 (0.16-1.47); MONOCYTES PERCENT MAN 6 % (4-13); MYELOCYTE ABSOLUTE MAN 0.49 K/mm3 (0.00-0.00); MYELOCYTE PERCENT MAN 4 % (0-0); NEUTROPHILS ABSOLUTE MAN 6.28 K/mm3 (1.96-9.15); SEG NEUTROPHILS PERCENT MAN 50 % (41-73); TOTAL CELLS COUNTED 100
== END 2022-04-16 10:39 | disposition home or self-care (01) ==
LOC: ER 08:27
PROVIDERS: Emergency Medicine
DX: K92.2 Gastrointestinal hemorrhage, unspecified (principal); D64.9 Anemia, unspecified; R79.1 Abnormal coagulation profile; I82.401 Acute embolism and thrombosis of unspecified deep veins of right lower extremity; I12.9 Hypertensive chronic kidney disease with stage 1 through stage 4 chronic kidney disease, or unspecified chronic kidney disease; N18.30 Chronic kidney disease, stage 3 unspecified; I25.10 Atherosclerotic heart disease of native coronary artery without angina pectoris; Z87.891 Personal history of nicotine dependence
CPT/HCPCS: 36415; 80053; 85025; 85610; 86850; 86900; 86901; 93005; 93010

== ENCOUNTER 2022-04-17 08:34 | Inpatient (IN) | payer OTHER ==
[~2022-04-17] VITALS: Ht 177.8 cm; Wt 87.0 kg
[2022-04-17 10:37] LABS: Hematocrit 42.2 % (37.0-53.0); Hemoglobin 13.3 g/dL (13.5-17.5); Mean Corpuscular HGB 24.1 pg (26.0-34.0); Mean Corpuscular HGB Conc 31.5 g/dL (31.5-36.5); Mean Corpuscular Volume 77 fL (80-100); Platelet Count 389 K/mm3 (150-400); RDW Coefficient Variation 25.3 % (11.7-14.2); RDW Standard Deviation 66.7 fL (35.1-46.3); Red Blood Cell Count 5.51 M/mm3 (4.30-5.90)
[2022-04-17 10:40] LABS: Albumin, Blood 3.8 g/dL (3.4-5.0); Albumin/Globulin Ratio 0.9 (0.8-1.8); Bilirubin, Total 1.5 mg/dL (0.1-1.0); Bun/Creatinine Ratio 16.5 (12.0-20.0); Calcium, Blood 9.5 mg/dL (8.5-10.1); Creatinine, Blood 1.09 mg/dL (0.60-1.20); Globulin, Blood 4.3 g/dL (2.2-4.0); Potassium, Blood 3.9 mmol/L (3.5-5.5); Total Protein, Blood 8.1 g/dL (6.4-8.2)
[2022-04-17 10:51] LABS: NRBC ABSOLUTE 0.76 K/mm3 (0.00-0.02); White Blood Cell Count 10.88 K/mm3 (4.00-11.30)
[2022-04-17 11:02] LABS: BAND PERCENT MAN 2 % (0-8); BASOPHILS PERCENT MAN 1 % (0-2); EOSINOPHILS ABSOLUTE MAN 3.26 K/mm3 (0.00-0.68); EOSINOPHILS PERCENT MAN 30 % (0-6); LYMPHOCYTES % ATYPICAL MANUAL 1 % (0-0); LYMPHOCYTES ABSOLUTE MAN 1.84 K/mm3 (0.84-5.20); LYMPHOCYTES PERCENT MAN 16 % (21-46); MONOCYTES ABSOLUTE MAN 0.54 K/mm3 (0.16-1.47); MONOCYTES PERCENT MAN 5 % (4-13); MYELOCYTE ABSOLUTE MAN 0.32 K/mm3 (0.00-0.00); MYELOCYTE PERCENT MAN 3 % (0-0); NEUTROPHILS ABSOLUTE MAN 4.46 K/mm3 (1.96-9.15); OTHER CELL PERCENT MAN 3 % (0-0); SEG NEUTROPHILS PERCENT MAN 39 % (41-73); TOTAL CELLS COUNTED 100
--- NOTE | 2022-04-17 13:25 | NUR ---
PT BROUGHT FROM ER TO DAY SURGERY FOR PROCEDURE.
--- NOTE | 2022-04-17 13:26 | NUR ---
PT HAS 20 GAUGE IV IN RIGHT HAND THAT FLUSHES AND FLOWS WELL TO GRAVITY. NO INFILTRATION OR LEAKAGE PRESENT.
--- NOTE | 2022-04-17 13:58 | NUR ---
04/17/22 1358 Gerri Kwong HISTORY, CHART, MEDICATIONS AND ALLERGIES REVIEWED BEFORE START OF PROCEDURE. PATIENT CONFIRMS NPO STATUS AND AGREES WITH SCHEDULED PROCEDURE. 3-LEAD EKG REVIEWED WITH PHYSICIAN PRIOR TO START OF PROCEDURE. MONITOR INTACT WITH CONTINUOUS PULSE OXIMETRY,CAPNOGRAPHY, 3-LEAD EKG, INTERMITTENT BP. SUPPLEMENTAL O2 TO BE TITRATED THROUGHOUT PROCEDURE TO MAINTAIN O2 SATURATION ABOVE 90%. PATIENT DETERMINED TO BE ASA APPROPRIATE FOR PROPOFOL SEDATION PRIOR TO START OF PROCEDURE BY
[2022-04-17 14:26] LABS: International Normalized Ratio 2.64
[2022-04-17 16:07] LABS: Percent Saturation 25.9 % (20.0-50.0)
--- NOTE | 2022-04-17 16:44 | NUR ---
Received report from PACU nurse. Pt came in with possible Gi Bleed. Upper scope done on patient. Pt axox4, pt is ambulatory. Pt vital signs are stable. Pt at bedside able to give more detail history and list of patient medication. Medication list completed in medication history. Patient educated on the use of the call light will continue to monitor.
--- NOTE | 2022-04-18 03:28 | NUR ---
Patient resting in bed at this time.
[2022-04-18 05:52] LABS: International Normalized Ratio 2.57; Prothrombin Time Results 25.4 Sec (9.7-11.5)
[2022-04-18 05:55] LABS: BASOPHILS ABSOLUTE AUTO 0.12 K/mm3 (0.00-0.23); BASOPHILS PERCENT AUTO 1 % (0-2); EOSINOPHILS ABSOLUTE AUTO 1.69 K/mm3 (0.00-0.68); EOSINOPHILS PERCENT AUTO 19 % (0-6); Hematocrit 39.4 % (37.0-53.0); Hemoglobin 12.1 g/dL (13.5-17.5); Mean Corpuscular HGB Conc 30.7 g/dL (31.5-36.5); Mean Corpuscular Volume 78 fL (80-100); NRBC Auto 6.7 /100 WBC (0.0-0.2); RDW Coefficient Variation 24.6 % (11.7-14.2); RDW Standard Deviation 67.6 fL (35.1-46.3); Red Blood Cell Count 5.04 M/mm3 (4.30-5.90); White Blood Cell Count 8.98 K/mm3 (4.00-11.30)
[2022-04-18 06:03] LABS: IMMATURE GRAN PERCENT AUTO 3 % (0-1); LYMPHOCYTES ABSOLUTE AUTO 2.37 K/mm3 (0.84-5.20); LYMPHOCYTES PERCENT AUTO 26 % (21-46); MONOCYTES ABSOLUTE AUTO 0.82 K/mm3 (0.16-1.47); MONOCYTES PERCENT AUTO 9 % (4-13); NEUTROPHILS ABSOLUTE AUTO 3.68 K/mm3 (1.96-9.15); NEUTROPHILS PERCENT AUTO 41 % (41-73); Platelet Count 336 K/mm3 (150-400)
[2022-04-18 07:08] LABS: Albumin, Blood 3.5 g/dL (3.4-5.0); Albumin/Globulin Ratio 0.9 (0.8-1.8); Bilirubin, Total 1.4 mg/dL (0.1-1.0); Bun/Creatinine Ratio 15.4 (12.0-20.0); Calcium, Blood 9.4 mg/dL (8.5-10.1); Creatinine, Blood 1.17 mg/dL (0.60-1.20); Globulin, Blood 3.7 g/dL (2.2-4.0); Potassium, Blood 3.8 mmol/L (3.5-5.5); Total Protein, Blood 7.2 g/dL (6.4-8.2)
--- NOTE | 2022-04-18 13:17 | NUR ---
Pt discharged at 1000. Pt given discharge instructions with his at bedside. Iv removed. [facility]ations [facility].
== END 2022-04-18 11:50 | disposition home or self-care (01) | DRG 378 ==
LOC: ER 08:34 → MEDS 12:32
PROVIDERS: Internal Medicine Gastroenterology; Pharmacist; Physician Assistant; ADMIT Family Medicine
PROC: 0DJ08ZZ Inspection of Upper Intestinal Tract, Via Natural or Artificial Opening Endoscopic (ICD-10-PCS; principal; 2022-04-17 13:30)
DX: K92.2 Gastrointestinal hemorrhage, unspecified (principal); E27.40 Unspecified adrenocortical insufficiency; E89.6 Postprocedural adrenocortical (-medullary) hypofunction; F41.9 Anxiety disorder, unspecified; N18.30 Chronic kidney disease, stage 3 unspecified; I25.10 Atherosclerotic heart disease of native coronary artery without angina pectoris; M10.9 Gout, unspecified; E11.22 Type 2 diabetes mellitus with diabetic chronic kidney disease; E78.5 Hyperlipidemia, unspecified; I12.9 Hypertensive chronic kidney disease with stage 1 through stage 4 chronic kidney disease, or unspecified chronic kidney disease; G47.33 Obstructive sleep apnea (adult) (pediatric); K21.9 Gastro-esophageal reflux disease without esophagitis; F32.A Depression, unspecified; J30.2 Other seasonal allergic rhinitis; J30.9 Allergic rhinitis, unspecified; F10.10 Alcohol abuse, uncomplicated; F12.10 Cannabis abuse, uncomplicated; I25.2 Old myocardial infarction; Z86.718 Personal history of other venous thrombosis and embolism; Z79.01 Long term (current) use of anticoagulants; Z79.899 Other long term (current) drug therapy; Z79.52 Long term (current) use of systemic steroids; Z79.02 Long term (current) use of antithrombotics/antiplatelets; Z79.82 Long term (current) use of aspirin; Z99.81 Dependence on supplemental oxygen; Z85.51 Personal history of malignant neoplasm of bladder; Z95.5 Presence of coronary angioplasty implant and graft; Z87.891 Personal history of nicotine dependence; Z85.53 Personal history of malignant neoplasm of renal pelvis; Z98.890 Other specified postprocedural states; Z90.5 Acquired absence of kidney; Z90.81 Acquired absence of spleen; Z98.52 Vasectomy status
CPT/HCPCS: 36415; 80053; 82728; 83540; 83550; 85025; 85610; 94660; 99285; A9270; J2250; J2704; J7120; J7512

== ENCOUNTER 2022-07-04 06:49 | Inpatient (IN) | payer OTHER, MEDICARE ==
[~2022-07-04] VITALS: Ht 177.8 cm; Wt 90.7 kg
[~2022-07-04 06:49] MED LIST changes: -EZET10; +EZET10 PO
[2022-07-04 07:06] LABS: Hematocrit 42.1 % (37.0-53.0)
[2022-07-04] MEDS ORDERED: ALLO100 PO (07:09)
[2022-07-04] MEDS ORDERED: COLCHICINE0.6 MG PO (07:09)
[2022-07-04] MEDS ORDERED: TAMS.4ER PO (07:09)
[2022-07-04] MEDS ORDERED: ASPI81CH PO (07:11)
[2022-07-04] MEDS ORDERED: CLOP75 PO (07:11)
[2022-07-04 07:16] LABS: Hemoglobin 12.7 g/dL (13.5-17.5); Mean Corpuscular HGB Conc 30.2 g/dL (31.5-36.5); Mean Corpuscular Volume 70 fL (80-100); RDW Coefficient Variation 24.7 % (11.7-14.2); RDW Standard Deviation 55.6 fL (35.1-46.3); Red Blood Cell Count 6.05 M/mm3 (4.30-5.90)
[2022-07-04 07:18] LABS: NRBC ABSOLUTE 0.55 K/mm3 (0.00-0.02); NRBC Auto 3.5 /100 WBC (0.0-0.2); White Blood Cell Count 15.78 K/mm3 (4.00-11.30)
[2022-07-04 07:23] LABS: Albumin, Blood 3.4 g/dL (3.4-5.0); Albumin/Globulin Ratio 0.9 (0.8-1.8); Bilirubin, Total 0.9 mg/dL (0.1-1.0); Bun/Creatinine Ratio 30.1 (12.0-20.0); Calcium, Blood 8.9 mg/dL (8.5-10.1); Creatinine, Blood 1.03 mg/dL (0.60-1.20); Globulin, Blood 3.9 g/dL (2.2-4.0); Potassium, Blood 4.5 mmol/L (3.5-5.5); Total Protein, Blood 7.3 g/dL (6.4-8.2)
[2022-07-04 07:34] LABS: BASOPHILS ABSOLUTE MAN 0.31 K/mm3 (0.00-0.23); BASOPHILS PERCENT MAN 2 % (0-2); EOSINOPHILS ABSOLUTE MAN 1.89 K/mm3 (0.00-0.68); EOSINOPHILS PERCENT MAN 12 % (0-6); LYMPHOCYTES PERCENT MAN 14 % (21-46); MONOCYTES ABSOLUTE MAN 0.94 K/mm3 (0.16-1.47); MONOCYTES PERCENT MAN 6 % (4-13); MYELOCYTE ABSOLUTE MAN 0.47 K/mm3 (0.00-0.00); MYELOCYTE PERCENT MAN 3 % (0-0); NEUTROPHILS ABSOLUTE MAN 9.94 K/mm3 (1.96-9.15); SEG NEUTROPHILS PERCENT MAN 63 % (41-73); TOTAL CELLS COUNTED 100
[2022-07-04 07:42] LABS: Platelet Count 345 K/mm3 (150-400)
--- NOTE | 2022-07-04 13:00 | NUR ---
Patient arrived via [facility] post report from Braulio RN. Patient changed to PCU Tele and showed SB 50-60's. Denies any chest pain. Admission done and Dr Jackson by to see patient. Dr Dunn called for consult. He is on RA and sats >90%. He is independent in room with all ADL's and transfers. at bedside.
--- NOTE | 2022-07-04 15:15 | NUR ---
Dr Dunn has been in room and i gave new Troponin of 1240 and has decided to take to clinical genetics laboratory chief in am. he will be NPO after midnight. He continues to deny any chest pain. He is independnet in room .SB 60's and MAP >65.
--- NOTE | 2022-07-04 17:30 | NUR ---
Patient remains independet in room. He continues with SB 50-60's and have shiown Dr Dunn changes in rhythm. Gave him update on procedure times tomorrow and he will remain NPO after midnight. Called Dr Jackson to get follow up Troponin for critical value. Cath still tomorrow after existing caths. Patient denies any chest pain or breathing difficulties.
[2022-07-05 05:05] LABS: Hematocrit 45.3 % (37.0-53.0); Hemoglobin 13.2 g/dL (13.5-17.5); Mean Corpuscular HGB 20.5 pg (26.0-34.0); Mean Corpuscular HGB Conc 29.1 g/dL (31.5-36.5); Mean Corpuscular Volume 71 fL (80-100); RDW Coefficient Variation 25.1 % (11.7-14.2); RDW Standard Deviation 58.2 fL (35.1-46.3); Red Blood Cell Count 6.43 M/mm3 (4.30-5.90)
[2022-07-05 05:06] LABS: Magnesium, Blood 2.4 mg/dL (1.6-2.4)
[2022-07-05 05:07] LABS: Albumin, Blood 3.5 g/dL (3.4-5.0); Anion Gap 3 mmol/L (6-16); Blood Urea Nitrogen 28 mg/dL (8-24); CO2, Blood 29 mmol/L (21-32); Calcium, Blood 9.3 mg/dL (8.5-10.1); Chloride, Blood 106 mmol/L (98-108); Creatinine, Blood 1.22 mg/dL (0.60-1.20); Glomerular Filtration Rate 65 (60-); Glucose, Blood 94 mg/dL (70-99); Potassium, Blood 4.6 mmol/L (3.5-5.5); Sodium, Blood 138 mmol/L (136-145)
[2022-07-05 05:12] LABS: NRBC ABSOLUTE 0.44 K/mm3 (0.00-0.02); White Blood Cell Count 14.54 K/mm3 (4.00-11.30)
[2022-07-05 06:15] LABS: BAND PERCENT MAN 1 % (0-8); BASOPHILS ABSOLUTE MAN 0.43 K/mm3 (0.00-0.23); BASOPHILS PERCENT MAN 3 % (0-2); BLASTS PERCENT MAN 1 % (0-0); EOSINOPHILS ABSOLUTE MAN 0.87 K/mm3 (0.00-0.68); EOSINOPHILS PERCENT MAN 6 % (0-6); LYMPHOCYTES ABSOLUTE MAN 4.07 K/mm3 (0.84-5.20); LYMPHOCYTES PERCENT MAN 28 % (21-46); MONOCYTES ABSOLUTE MAN 0.29 K/mm3 (0.16-1.47); MONOCYTES PERCENT MAN 2 % (4-13); MYELOCYTE ABSOLUTE MAN 0.14 K/mm3 (0.00-0.00); MYELOCYTE PERCENT MAN 1 % (0-0); NEUTROPHILS ABSOLUTE MAN 8.57 K/mm3 (1.96-9.15); SEG NEUTROPHILS PERCENT MAN 58 % (41-73); TOTAL CELLS COUNTED 100
[2022-07-05 06:27] LABS: Platelet Count 348 K/mm3 (150-400)
--- NOTE | 2022-07-05 06:43 | NUR ---
SHIFT SUMMARY PATIENT ALERT AND ORIENTED X4. VITAL SIGNS STABLE. SPO2 >90% ON ROOM AIR. PATIENT DENIES HAVING ANY CHEST PAIN. TROPONIN TRENDING DOWN. NO ACUTE ISSUES NOTED OVERNIGHT. CALL LIGHT WITHIN REACH.
[2022-07-05 12:25] LABS: International Normalized Ratio 0.96; Prothrombin Time Results 10.1 Sec (9.7-11.5)
--- NOTE | 2022-07-05 17:26 | NUR ---
SHIFT SUMMARY ASSUMED CARE OF PT AT 0700 THIS AM. PT KEPT NPO T/O THE DAY FOR ANGIOGRAM. DR SUTTON AND DR SCOTT ROUNDING ON PT IN THE AM. PT'S FAMILY AT BEDSIDE. PLAN OF CARE EXPLAINED, PT IS AWAITING DOPE WEIGH OPERATOR THIS EVENING. PT BACK FROM DOPE WEIGH OPERATOR AT APROX 1710, 10ML AIR IN TR BAND, SITE WNL. PT VERBALIZES UNDERSTANDING OF TR BAND MOVEMENT RESTRICTIONS TO R WRIST. NO INTERVENTION PER DOPE WEIGH OPERATOR REPORT. SEE DOCUMENTED VS AND ASSESSMENT. PT IS ABLE TO USE CALL LIGHT FOR NEEDS, CALL LIGHT IN REACH, WILL CONTINUE TO MONITOR AND GIVE REPORT TO NOC SHIFT RN. SEE TR BAND RECOVERY DOCUMENTATION UNDER HC FLOWSHEET INTERVENTION.
--- NOTE | 2022-07-06 06:15 | NUR ---
SHIFT SUMMARY PATIENT ALERT AND ORIENTED X4. VITAL SIGNS STABLE. PATIENT DENIES ANY CHEST PAIN OR SHORTNESS OF BREATH. PATIENT SINUS RHYTHM IN THE 90'S TO SINUS TACH IN THE LOW 100'S. TR BAND REMOVED AROUND 2100, NO OOZING OR BRUISING NOTED, ARM BOARD IN PLACE. NO ACUTE ISSUES NOTED OVERNIGHT. CALL LIGHT WITHIN REACH.
[2022-07-06 08:28] LABS: Albumin, Blood 3.5 g/dL (3.4-5.0); Anion Gap 6 mmol/L (6-16); Blood Urea Nitrogen 31 mg/dL (8-24); Bun/Creatinine Ratio 26.5 (12.0-20.0); CO2, Blood 26 mmol/L (21-32); Calcium, Blood 9.1 mg/dL (8.5-10.1); Chloride, Blood 104 mmol/L (98-108); Creatinine, Blood 1.17 mg/dL (0.60-1.20); Glomerular Filtration Rate 68 (60-); Glucose, Blood 134 mg/dL (70-99); Phosphorus, Blood 3.4 mg/dL (2.5-4.9); Potassium, Blood 4.1 mmol/L (3.5-5.5); Sodium, Blood 136 mmol/L (136-145)
[2022-07-06 08:30] LABS: Hematocrit 44.2 % (37.0-53.0); Hemoglobin 13.6 g/dL (13.5-17.5); Mean Corpuscular HGB 21.2 pg (26.0-34.0); Mean Corpuscular HGB Conc 30.8 g/dL (31.5-36.5); Mean Corpuscular Volume 69 fL (80-100); RDW Coefficient Variation 24.9 % (11.7-14.2); RDW Standard Deviation 55.8 fL (35.1-46.3); Red Blood Cell Count 6.42 M/mm3 (4.30-5.90)
[2022-07-06 08:31] LABS: NRBC ABSOLUTE 0.28 K/mm3 (0.00-0.02); NRBC Auto 1.7 /100 WBC (0.0-0.2); White Blood Cell Count 16.05 K/mm3 (4.00-11.30)
[2022-07-06 09:07] LABS: BAND PERCENT MAN 1 % (0-8); BASOPHILS ABSOLUTE MAN 0.32 K/mm3 (0.00-0.23); BASOPHILS PERCENT MAN 2 % (0-2); EOSINOPHILS ABSOLUTE MAN 2.08 K/mm3 (0.00-0.68); EOSINOPHILS PERCENT MAN 13 % (0-6); LYMPHOCYTES % ATYPICAL MANUAL 1 % (0-0); LYMPHOCYTES PERCENT MAN 14 % (21-46); MONOCYTES ABSOLUTE MAN 0.96 K/mm3 (0.16-1.47); MONOCYTES PERCENT MAN 6 % (4-13); MYELOCYTE ABSOLUTE MAN 0.32 K/mm3 (0.00-0.00); MYELOCYTE PERCENT MAN 2 % (0-0); NEUTROPHILS ABSOLUTE MAN 9.95 K/mm3 (1.96-9.15); SEG NEUTROPHILS PERCENT MAN 61 % (41-73); TOTAL CELLS COUNTED 100
--- NOTE | 2022-07-06 09:18 | NUR ---
AM NOTE: PATIENT ALERT AND ORIENTED X4. DENIES N/T. UP TO BATHROOM IND. ABLE TO MAKE NEEDS KNOWN. ON ROOM AIR SATING ABOVE 95%. LUNGS SOUNDING CLEAR AND DIM IN BASES. DENIES SOB. TELE SHOWING SR/ST WITH HR 90-110'S. BP STABLE. DENIES CHEST PAIN/PRESSURE. NO SIGNS OF EDEMA. S/P ANGIOGRAM WITH RIGHT RADIAL SITE. SITE WNL, TEGADERM AND ARM BOARD IN PLACE. NO SIGN OF BLEEDING OR BRUISING. DENIES ABDOMINAL PAIN/NAUSEA. EATING AND DRINKING WNL. VOIDING WNL, USING URINAL. PATIENT REPORTS LEFT BIG TOE AND SECOND TOE PAIN DUE TO GOUT. SITE RED AND SLIGHTLY INFLAMMED. PLAN FOR DISCHARGE THIS AFTERNOON. DENIES NEEDS AT THIS TIME.
[2022-07-06 09:24] LABS: Platelet Count 372 K/mm3 (150-400)
[2022-07-06] MEDS ORDERED: Amiodarone HCl200 MG PO (09:42)
[2022-07-06] MEDS ORDERED: AMIODARONE HCL400 M2 PO (09:42)
[2022-07-06] MEDS ORDERED: AMLO5 PO (09:43)
[2022-07-06] MEDS ORDERED: XARELTO20 MG PO (09:43)
--- NOTE | 2022-07-06 11:41 | NUR ---
DISCHARGE: NO ACUTE CHANGES, SEE PREVIOUS AM NOTE. DISCHARGE WNL. THIS RN REVIEWED DISCHARGE PACKET THAT INCLUDED STOPPED MEDICATION, NEW MEDICATIONS, DOSE CHANGE TO NEW MEDICATIONS IN A FEW DAYS, FOLLOW UP APPOINTMENTS WITH PCP AND CARDIOLOGY, RADIAL SITE CARE PRECAUTIONS AND SIGNS AND SYMPTOMS OF WHEN TO RETURN TO ED. IV REMOVED WNL. IN TO [place] [facility]VAGE PATIENT. PATIENT LEFT UNIT WITH ALL PERSONAL BELONGINGS INCLUDING DISCHARGE PACKET.
== END 2022-07-06 10:28 | disposition home or self-care (01) | DRG 281 ==
LOC: ER 06:49 → PCU 10:08
PROVIDERS: Emergency Medicine; Internal Medicine Cardiovascular Disease; ADMIT Family Medicine
PROC: 5A09357 Assistance with Respiratory Ventilation, Less than 24 Consecutive Hours, Continuous Positive Airway Pressure (ICD-10-PCS; 2022-07-04)
PROC: 4A023N7 Measurement of Cardiac Sampling and Pressure, Left Heart, Percutaneous Approach (ICD-10-PCS; principal; 2022-07-05)
PROC: B211YZZ Fluoroscopy of Multiple Coronary Arteries using Other Contrast (ICD-10-PCS; 2022-07-05)
PROC: B240ZZ3 Ultrasonography of Single Coronary Artery, Intravascular (ICD-10-PCS; 2022-07-05)
DX: I21.4 Non-ST elevation (NSTEMI) myocardial infarction (principal); I13.0 Hypertensive heart and chronic kidney disease with heart failure and stage 1 through stage 4 chronic kidney disease, or unspecified chronic kidney disease; Q60.0 Renal agenesis, unilateral; I50.20 Unspecified systolic (congestive) heart failure; I24.9 Acute ischemic heart disease, unspecified; I25.10 Atherosclerotic heart disease of native coronary artery without angina pectoris; N18.30 Chronic kidney disease, stage 3 unspecified; G47.33 Obstructive sleep apnea (adult) (pediatric); E78.5 Hyperlipidemia, unspecified; M10.9 Gout, unspecified; F12.10 Cannabis abuse, uncomplicated; F10.10 Alcohol abuse, uncomplicated; E11.22 Type 2 diabetes mellitus with diabetic chronic kidney disease; I48.0 Paroxysmal atrial fibrillation; N40.0 Benign prostatic hyperplasia without lower urinary tract symptoms; Z95.5 Presence of coronary angioplasty implant and graft; Z86.718 Personal history of other venous thrombosis and embolism; Z98.890 Other specified postprocedural states; Z85.528 Personal history of other malignant neoplasm of kidney; Z79.899 Other long term (current) drug therapy; Z79.52 Long term (current) use of systemic steroids; Z79.02 Long term (current) use of antithrombotics/antiplatelets; Z79.82 Long term (current) use of aspirin; Z99.81 Dependence on supplemental oxygen; Z85.51 Personal history of malignant neoplasm of bladder; Z88.8 Allergy status to other drugs, medicaments and biological substances; I25.2 Old myocardial infarction; Z87.891 Personal history of nicotine dependence; Z87.19 Personal history of other diseases of the digestive system; E66.3 Overweight; Z68.28 Body mass index [BMI] 28.0-28.9, adult
CPT/HCPCS: 36415; 71045; 76937; 80053; 80069; 83735; 84484; 85025; 85610; 93005; 93010; 93454; 96374; 99152; 99153; 99285-25; A9270; C1769; C1887; C1894; C8929; J1644; J2250; J3010; J7030; J7050; J7512; Q9957; Q9967

== ENCOUNTER 2022-08-05 07:19 | Day surgery (SDC) | payer OTHER ==
[~2022-08-05] VITALS: Ht 177.8 cm; Wt 90.7 kg
[2022-08-05] VITALS (14 sets, daily range): BP systolic 106–151; BP diastolic 69–95
[~2022-08-05 07:19] MED LIST changes: +ALLO100 PO; +AMIODARONE HCL400 M2 PO; +AMLO5 PO; +Amiodarone HCl200 MG PO; +COLCHICINE0.6 MG PO; +XARELTO20 MG PO
--- NOTE | 2022-08-05 08:05 | NUR ---
MARY SUCCESSFUL, PATIENT TOELERATING SEDATION WITH ANESTHESIA WELL. VSS
--- NOTE | 2022-08-05 08:21 | NUR ---
PATIENT SITTING UPRIGHT IN BED, CONVERSING APPROPRIATELY. VSS ON 2 LNC.
--- NOTE | 2022-08-05 08:32 | NUR ---
ZIO PATCH PLACED ON PATIENT WITHOUT DIFFICULTY
--- NOTE | 2022-08-05 09:00 | NUR ---
PATIENT DISCHARGED HOME AT THIS TIME. DISCHARGE PAPERWORK AND BELONGINGS LEFT WITH PATIENT. DISCHARGE PAPERWORK AND MED LIST REVIEWED WITH PATIENT AND SPOUSE AT BEDSIDE. VSS ON ROOM AIR. PATIENT CONVERSING APPROPRIATELY WITH SPOUSE. PIV REMOVED WITHOUT DIFFICULTY, CATHETER INTACT. PATIENT WHEELED TO PATIENT ENTRANCE. SPOUSE ABLE TO TRANSPORT PATIENT HOME.
== END 2022-08-05 22:56 | disposition home or self-care (01) ==
LOC: MHTC 07:19 → MHTC NI 09:00 → MHTC 22:56
DX: I48.0 Paroxysmal atrial fibrillation (principal); I25.10 Atherosclerotic heart disease of native coronary artery without angina pectoris; E78.5 Hyperlipidemia, unspecified; I12.9 Hypertensive chronic kidney disease with stage 1 through stage 4 chronic kidney disease, or unspecified chronic kidney disease; E11.22 Type 2 diabetes mellitus with diabetic chronic kidney disease; N18.9 Chronic kidney disease, unspecified; Z79.899 Other long term (current) drug therapy
CPT/HCPCS: 93242; 93312; 93325

== ENCOUNTER 2022-10-07 10:17 | Emergency (ER) | payer OTHER ==
[~2022-10-07] VITALS: Ht 177.8 cm; Wt 90.7 kg
[~2022-10-07 10:17] MED LIST changes: +ACET325 PO; +BUME1 PO; +ELIQUIS5 M2 PO; +GABA100 PO; +Norco 10-325 T1 EACH PO; +POTA10T PO; +PROBIOTIC1 EA13 PO; +SPIR50 PO
[2022-10-07 11:22] LABS: Albumin, Blood 3.1 g/dL (3.4-5.0); Albumin/Globulin Ratio 0.5 (0.8-1.8); Calcium, Blood 10.2 mg/dL (8.5-10.1); Creatinine, Blood 1.62 mg/dL (0.60-1.20); Globulin, Blood 6.6 g/dL (2.2-4.0); Potassium, Blood 4.2 mmol/L (3.5-5.5); Total Protein, Blood 9.7 g/dL (6.4-8.2)
[2022-10-07 11:29] LABS: Hemoglobin 10.8 g/dL (13.5-17.5)
[2022-10-07 11:36] LABS: Hematocrit 36.4 % (37.0-53.0); Mean Corpuscular HGB 19.6 pg (26.0-34.0); Mean Corpuscular HGB Conc 29.7 g/dL (31.5-36.5); Mean Corpuscular Volume 66 fL (80-100); NRBC ABSOLUTE 7.13 K/mm3 (0.00-0.02); NRBC Auto 34.7 /100 WBC (0.0-0.2); Platelet Count 384 K/mm3 (150-400); RDW Coefficient Variation 25.7 % (11.7-14.2); RDW Standard Deviation 54.9 fL (35.1-46.3); White Blood Cell Count 20.56 K/mm3 (4.00-11.30)
[2022-10-07 12:36] LABS: BAND PERCENT MAN 5 % (0-8); BASOPHILS PERCENT MAN 0 % (0-2); EOSINOPHILS ABSOLUTE MAN 2.67 K/mm3 (0.00-0.68); EOSINOPHILS PERCENT MAN 13 % (0-6); LYMPHOCYTES % ATYPICAL MANUAL 2 % (0-0); LYMPHOCYTES ABSOLUTE MAN 5.34 K/mm3 (0.84-5.20); LYMPHOCYTES PERCENT MAN 24 % (21-46); METAMYELOCYTE ABSOLUTE MAN 1.23 K/mm3 (0.00-0.00); METAMYELOCYTE PERCENT MAN 6 % (0-0); MONOCYTES ABSOLUTE MAN 0.61 K/mm3 (0.16-1.47); MONOCYTES PERCENT MAN 3 % (4-13); MYELOCYTE PERCENT MAN 1 % (0-0); NEUTROPHILS ABSOLUTE MAN 10.48 K/mm3 (1.96-9.15); SEG NEUTROPHILS PERCENT MAN 46 % (41-73); TOTAL CELLS COUNTED 100
[2022-10-07 13:30] VITALS: BP 107/73
== END 2022-10-07 13:30 | disposition home or self-care (01) ==
LOC: ER 10:17
PROVIDERS: Emergency Medicine
DX: I26.99 Other pulmonary embolism without acute cor pulmonale (principal); D72.829 Elevated white blood cell count, unspecified; D64.9 Anemia, unspecified; I12.9 Hypertensive chronic kidney disease with stage 1 through stage 4 chronic kidney disease, or unspecified chronic kidney disease; N18.30 Chronic kidney disease, stage 3 unspecified; Z88.6 Allergy status to analgesic agent; Z79.899 Other long term (current) drug therapy; Z79.52 Long term (current) use of systemic steroids; Z79.01 Long term (current) use of anticoagulants; Z87.891 Personal history of nicotine dependence
CPT/HCPCS: 71260; 80053; 83880; 84484; 85025; 93005; 93010; 99285-25; A9270; Q9967

== ENCOUNTER 2022-10-15 13:25 | Emergency (ER) | payer OTHER ==
[~2022-10-15] VITALS: Ht 177.8 cm; Wt 76.2 kg
[2022-10-15 14:22] LABS: Hemoglobin 10.4 g/dL (13.5-17.5); International Normalized Ratio 1.19; Platelet Count 477 K/mm3 (150-400); Prothrombin Time Results 12.4 Sec (9.7-11.5)
[2022-10-15 14:31] LABS: Hematocrit 35.4 % (37.0-53.0); Mean Corpuscular HGB 19.5 pg (26.0-34.0); Mean Corpuscular HGB Conc 29.4 g/dL (31.5-36.5); Mean Corpuscular Volume 66 fL (80-100); NRBC ABSOLUTE 1.81 K/mm3 (0.00-0.02); NRBC Auto 9.9 /100 WBC (0.0-0.2); RDW Coefficient Variation 27.2 % (11.7-14.2); RDW Standard Deviation 59.2 fL (35.1-46.3); Red Blood Cell Count 5.33 M/mm3 (4.30-5.90); White Blood Cell Count 18.28 K/mm3 (4.00-11.30)
[2022-10-15 14:53] LABS: BASOPHILS PERCENT MAN 0 % (0-2); BLASTS PERCENT MAN 5 % (0-0); EOSINOPHILS ABSOLUTE MAN 0.18 K/mm3 (0.00-0.68); EOSINOPHILS PERCENT MAN 1 % (0-6); LYMPHOCYTES % ATYPICAL MANUAL 4 % (0-0); LYMPHOCYTES ABSOLUTE MAN 5.84 K/mm3 (0.84-5.20); LYMPHOCYTES PERCENT MAN 28 % (21-46); METAMYELOCYTE ABSOLUTE MAN 0.18 K/mm3 (0.00-0.00); METAMYELOCYTE PERCENT MAN 1 % (0-0); MONOCYTES ABSOLUTE MAN 2.01 K/mm3 (0.16-1.47); MONOCYTES PERCENT MAN 11 % (4-13); MYELOCYTE ABSOLUTE MAN 0.54 K/mm3 (0.00-0.00); MYELOCYTE PERCENT MAN 3 % (0-0); NEUTROPHILS ABSOLUTE MAN 8.59 K/mm3 (1.96-9.15); SEG NEUTROPHILS PERCENT MAN 47 % (41-73); TOTAL CELLS COUNTED 100
[2022-10-15 15:51] LABS: Albumin, Blood 3.7 g/dL (3.4-5.0); Albumin/Globulin Ratio 0.7 (0.8-1.8); Bilirubin, Total 1.5 mg/dL (0.1-1.0); Bun/Creatinine Ratio 21.1 (12.0-20.0); Creatinine, Blood 2.18 mg/dL (0.60-1.20); Globulin, Blood 5.5 g/dL (2.2-4.0); Potassium, Blood 4.8 mmol/L (3.5-5.5); Total Protein, Blood 9.2 g/dL (6.4-8.2)
[2022-10-15 17:00] VITALS: BP 136/89
== END 2022-10-15 17:24 | disposition home or self-care (01) ==
LOC: ER 13:25
PROVIDERS: Emergency Medicine
DX: E86.0 Dehydration (principal); D64.9 Anemia, unspecified; Z88.8 Allergy status to other drugs, medicaments and biological substances; Z79.899 Other long term (current) drug therapy; Z79.52 Long term (current) use of systemic steroids; I12.9 Hypertensive chronic kidney disease with stage 1 through stage 4 chronic kidney disease, or unspecified chronic kidney disease; N18.30 Chronic kidney disease, stage 3 unspecified; E78.5 Hyperlipidemia, unspecified; G47.33 Obstructive sleep apnea (adult) (pediatric); Z87.891 Personal history of nicotine dependence
CPT/HCPCS: 71046; 80053; 82272; 83880; 84484; 85025; 85610; 93005; 93010; 96374; 99285-25; C9113; J7030

== ENCOUNTER → 2022-11-04 | Outpatient (CLI) | payer OTHER ==
[2022-11-04 13:50] LABS: Hemoglobin 8.7 g/dL (13.5-17.5)
[2022-11-04 13:55] LABS: Bun/Creatinine Ratio 17.9 (12.0-20.0); Calcium, Blood 10.2 mg/dL (8.5-10.1); Creatinine, Blood 1.62 mg/dL (0.60-1.20); Potassium, Blood 4.3 mmol/L (3.5-5.5)
[2022-11-04 14:34] LABS: Mean Corpuscular HGB 20.2 pg (26.0-34.0); Mean Corpuscular Volume 67 fL (80-100); NRBC ABSOLUTE 3.01 K/mm3 (0.00-0.02); Platelet Count 803 K/mm3 (150-400); RDW Coefficient Variation 27.9 % (11.7-14.2); RDW Standard Deviation 65.5 fL (35.1-46.3); White Blood Cell Count 23.53 K/mm3 (4.00-11.30)
[2022-11-04 14:50] LABS: BASOPHILS ABSOLUTE MAN 0.23 K/mm3 (0.00-0.23); BASOPHILS PERCENT MAN 1 % (0-2); EOSINOPHILS ABSOLUTE MAN 3.05 K/mm3 (0.00-0.68); EOSINOPHILS PERCENT MAN 13 % (0-6); LYMPHOCYTES ABSOLUTE MAN 1.88 K/mm3 (0.84-5.20); LYMPHOCYTES PERCENT MAN 8 % (21-46); METAMYELOCYTE ABSOLUTE MAN 0.94 K/mm3 (0.00-0.00); METAMYELOCYTE PERCENT MAN 4 % (0-0); MONOCYTES ABSOLUTE MAN 0.94 K/mm3 (0.16-1.47); MONOCYTES PERCENT MAN 4 % (4-13); NEUTROPHILS ABSOLUTE MAN 16.47 K/mm3 (1.96-9.15); SEG NEUTROPHILS PERCENT MAN 70 % (41-73); TOTAL CELLS COUNTED 100
== END | disposition home or self-care (01) ==
LOC: LAB SHORT 13:44 → LAB 13:44
PROVIDERS: Physician Assistant Surgical
DX: R55 Syncope and collapse (principal)
CPT/HCPCS: 80048; 83880; 85025

== ENCOUNTER 2022-11-29 00:55 | Day surgery (SDC) | payer OTHER ==
[2022-11-28 09:22] LABS: Albumin, Blood 3.4 g/dL (3.4-5.0); Albumin/Globulin Ratio 0.8 (0.8-1.8); Bilirubin, Total 1.4 mg/dL (0.1-1.0); Calcium, Blood 9.1 mg/dL (8.5-10.1); Creatinine, Blood 0.87 mg/dL (0.60-1.20); Potassium, Blood 4.3 mmol/L (3.5-5.5); Total Protein, Blood 7.4 g/dL (6.4-8.2)
[2022-11-28 09:33] LABS: Hemoglobin 6.4 g/dL (13.5-17.5)
[2022-11-28 09:35] LABS: Hematocrit 21.4 % (37.0-53.0); Mean Corpuscular HGB 20.8 pg (26.0-34.0); Mean Corpuscular HGB Conc 29.9 g/dL (31.5-36.5); Mean Corpuscular Volume 70 fL (80-100); NRBC ABSOLUTE 20.36 K/mm3 (0.00-0.02); NRBC Auto 118.1 /100 WBC (0.0-0.2); RDW Coefficient Variation 29.9 % (11.7-14.2); RDW Standard Deviation 67.5 fL (35.1-46.3); Red Blood Cell Count 3.08 M/mm3 (4.30-5.90)
[2022-11-28 10:14] LABS: BASOPHILS PERCENT MAN 0 % (0-2); BLASTS PERCENT MAN 3 % (0-0); EOSINOPHILS PERCENT MAN 2 % (0-6); LYMPHOCYTES % ATYPICAL MANUAL 2 % (0-0); LYMPHOCYTES PERCENT MAN 23 % (21-46); METAMYELOCYTE PERCENT MAN 2 % (0-0); MONOCYTES PERCENT MAN 4 % (4-13); MYELOCYTE PERCENT MAN 4 % (0-0); PLASMA CELLS PERCENT MAN 2 % (0-0); SEG NEUTROPHILS PERCENT MAN 58 % (41-73); TOTAL CELLS COUNTED 100
[2022-11-28 10:45] LABS: EOSINOPHILS ABSOLUTE MAN 0.34 K/mm3 (0.00-0.68); LYMPHOCYTES ABSOLUTE MAN 4.31 K/mm3 (0.84-5.20); METAMYELOCYTE ABSOLUTE MAN 0.34 K/mm3 (0.00-0.00); MONOCYTES ABSOLUTE MAN 0.68 K/mm3 (0.16-1.47); MYELOCYTE ABSOLUTE MAN 0.68 K/mm3 (0.00-0.00); NEUTROPHILS ABSOLUTE MAN 9.99 K/mm3 (1.96-9.15); PLASMA CELL ABSOLUTE MAN 0.34 K/mm3 (0.00-0.00); White Blood Cell Count 17.24 K/mm3 (4.00-11.30)
[2022-11-28 10:47] LABS: Platelet Count 86 K/mm3 (150-400)
[2022-11-29 13:26] VITALS: BP 106/68
[2022-11-29 13:48] VITALS: BP 98/62
[2022-11-29 14:46] VITALS: BP 99/65
[2022-11-29 15:08] VITALS: BP 104/63
[2022-11-29 15:23] VITALS: BP 86/60
[2022-11-29 16:57] VITALS: BP 98/69
== END 2022-11-29 16:58 | disposition home or self-care (01) ==
LOC: ATC 00:55 → EDSTATUS 11-02 08:15 → LAB FUT 11-02 08:15
PROVIDERS: Internal Medicine Hematology & Oncology
DX: C64.2 Malignant neoplasm of left kidney, except renal pelvis (principal); C93.10 Chronic myelomonocytic leukemia not having achieved remission; I10 Essential (primary) hypertension; I25.10 Atherosclerotic heart disease of native coronary artery without angina pectoris; Z95.5 Presence of coronary angioplasty implant and graft; Z79.01 Long term (current) use of anticoagulants; Z79.82 Long term (current) use of aspirin; Z79.899 Other long term (current) drug therapy
CPT/HCPCS: 36415; 36430; 80053; 85025; 86850; 86900; 86901; 86923; J7050; P9016

== ENCOUNTER → 2022-12-07 | Outpatient (CLI) | payer OTHER ==
[~2022-12-07] MED LIST changes: +ENOX80I SC; +PANT40 PO
[2022-12-07 13:47] LABS: Percent Saturation 9.7 % (20.0-50.0)
== END ==
LOC: LAB SHORT 12:05 → LAB 12:05
PROVIDERS: Registered Nurse Oncology
DX: R53.83 Other fatigue (principal); D50.9 Iron deficiency anemia, unspecified
CPT/HCPCS: 82728; 83010; 83540; 83550; 83615

== ENCOUNTER 2022-12-08 20:16 | Inpatient (IN) | payer OTHER, MEDICARE ==
[~2022-12-08] VITALS: Ht 177.8 cm; Wt 78.8 kg
[~2022-12-08 20:16] MED LIST changes: -ENOX80I SC; -PANT40 PO
[2022-12-08 20:49] LABS: Hemoglobin 7.3 g/dL (13.5-17.5)
[2022-12-08 21:03] LABS: Albumin, Blood 2.4 g/dL (3.4-5.0); Albumin/Globulin Ratio 0.5 (0.8-1.8); Bilirubin, Total 1.3 mg/dL (0.1-1.0); Bun/Creatinine Ratio 16.1 (12.0-20.0); Calcium, Blood 9.2 mg/dL (8.5-10.1); Creatinine, Blood 1.12 mg/dL (0.60-1.20); Globulin, Blood 4.4 g/dL (2.2-4.0); Potassium, Blood 3.8 mmol/L (3.5-5.5); Total Protein, Blood 6.8 g/dL (6.4-8.2)
[2022-12-08 21:39] LABS: BAND PERCENT MAN 4 % (0-8); BASOPHILS PERCENT MAN 2 % (0-2); BLASTS PERCENT MAN 1 % (0-0); EOSINOPHILS PERCENT MAN 12 % (0-6); LYMPHOCYTES PERCENT MAN 24 % (21-46); METAMYELOCYTE PERCENT MAN 3 % (0-0); MONOCYTES PERCENT MAN 4 % (4-13); MYELOCYTE PERCENT MAN 8 % (0-0); SEG NEUTROPHILS PERCENT MAN 42 % (41-73); TOTAL CELLS COUNTED 100
[2022-12-08 21:43] LABS: BASOPHILS ABSOLUTE AUTO 0.18 K/mm3 (0.00-0.23); BASOPHILS PERCENT AUTO 2 % (0-2); EOSINOPHILS ABSOLUTE AUTO 2.03 K/mm3 (0.00-0.68); EOSINOPHILS PERCENT AUTO 17 % (0-6); Hematocrit 23.5 % (37.0-53.0); IMMATURE GRAN PERCENT AUTO 20 % (0-1); LYMPHOCYTES ABSOLUTE AUTO 1.23 K/mm3 (0.84-5.20); LYMPHOCYTES PERCENT AUTO 10 % (21-46); MONOCYTES ABSOLUTE AUTO 0.84 K/mm3 (0.16-1.47); MONOCYTES PERCENT AUTO 7 % (4-13); Mean Corpuscular HGB 23.3 pg (26.0-34.0); Mean Corpuscular HGB Conc 31.1 g/dL (31.5-36.5); Mean Corpuscular Volume 75 fL (80-100); NEUTROPHILS ABSOLUTE AUTO 5.59 K/mm3 (1.96-9.15); NEUTROPHILS ABSOLUTE MAN 5.64 K/mm3 (1.96-9.15); NEUTROPHILS PERCENT AUTO 46 % (41-73); NRBC ABSOLUTE 11.14 K/mm3 (0.00-0.02); NRBC Auto 90.8 /100 WBC (0.0-0.2); Platelet Count 90 K/mm3 (150-400); RDW Coefficient Variation 29.9 % (11.7-14.2); RDW Standard Deviation 78.3 fL (35.1-46.3); Red Blood Cell Count 3.13 M/mm3 (4.30-5.90); White Blood Cell Count 12.27 K/mm3 (4.00-11.30)
[2022-12-08 21:45] LABS: Influenza A, PCR NEGATIVE (NEGATIVE); Influenza B, PCR NEGATIVE (NEGATIVE); Resp Syncytial Virus, PCR NEGATIVE (NEGATIVE); SARS-Cov-2 (COVID-19) PCR, MMC NEGATIVE (NEGATIVE)
[2022-12-09] VITALS (44 sets, daily range): BP systolic 83–106; BP diastolic 58–86
--- NOTE | 2022-12-09 01:40 | NUR ---
ADMISSION: PT ALERT AND ORIENTED X4, ABLE TO FOLLOW COMMANDS AND MAKE NEEDS KNOWN. STRENGTH WEAK, EQUAL BILATERALLY. BP SOFT, MAP >65. HR ST 120'S, AFEBRILE, SATS >90% ON 5L NC. RESPIRATIONS SHALLOW, PT ON RA AT BASELINE. PULSES STRONG AND EQUAL THROUGHOUT. +1 EDEMA NOTED IN BLE. DENIES CP/PRESSURE. PT WITH CHRONIC NECK, SHOULDER PAIN. MEDICATED PER EMAR WITH GOOD RESULTS. MD AT BEDSIDE, AWARE OF BP AND CONCERNS OF FLUID OVERLOAD WITH HX OF CHF. FLUIDS ON STANDBY, CONTINUING TO MONITOR BP CLOSELY. PT ORIENTED TO ROOM AND CALL LIGHT SYSTEM. BED IN LOW, CALL LIGHT IN REACH.
[2022-12-09 03:44] LABS: Hemoglobin 6.9 g/dL (13.5-17.5)
[2022-12-09 03:45] LABS: Hematocrit 22.1 % (37.0-53.0); Mean Corpuscular HGB 23.1 pg (26.0-34.0); Mean Corpuscular HGB Conc 31.2 g/dL (31.5-36.5); Mean Corpuscular Volume 74 fL (80-100); NRBC ABSOLUTE 9.27 K/mm3 (0.00-0.02); NRBC Auto 82.5 /100 WBC (0.0-0.2); Platelet Count 67 K/mm3 (150-400); RDW Standard Deviation 76.4 fL (35.1-46.3); Red Blood Cell Count 2.99 M/mm3 (4.30-5.90); White Blood Cell Count 11.23 K/mm3 (4.00-11.30)
--- NOTE | 2022-12-09 03:56 | NUR ---
UPDATE: PT CURRENTLY ON 10L HIFOW FROM 2L NC. HGB 6.9 THIS AM. NO NEW ORDERS RECEIVED AT THIS TIME.
[2022-12-09 03:59] LABS: Albumin, Blood 2.2 g/dL (3.4-5.0); Albumin/Globulin Ratio 0.5 (0.8-1.8); Bilirubin, Total 0.9 mg/dL (0.1-1.0); Bun/Creatinine Ratio 18.3 (12.0-20.0); Calcium, Blood 8.3 mg/dL (8.5-10.1); Creatinine, Blood 1.04 mg/dL (0.60-1.20); Globulin, Blood 4.1 g/dL (2.2-4.0); Potassium, Blood 4.1 mmol/L (3.5-5.5); Total Protein, Blood 6.3 g/dL (6.4-8.2)
[2022-12-09 04:01] LABS: BAND PERCENT MAN 6 % (0-8); BASOPHILS PERCENT MAN 0 % (0-2); BLASTS PERCENT MAN 2 % (0-0); EOSINOPHILS ABSOLUTE MAN 1.23 K/mm3 (0.00-0.68); EOSINOPHILS PERCENT MAN 11 % (0-6); LYMPHOCYTES ABSOLUTE MAN 2.58 K/mm3 (0.84-5.20); LYMPHOCYTES PERCENT MAN 23 % (21-46); METAMYELOCYTE ABSOLUTE MAN 0.22 K/mm3 (0.00-0.00); METAMYELOCYTE PERCENT MAN 2 % (0-0); MONOCYTES ABSOLUTE MAN 0.67 K/mm3 (0.16-1.47); MONOCYTES PERCENT MAN 6 % (4-13); MYELOCYTE ABSOLUTE MAN 0.56 K/mm3 (0.00-0.00); MYELOCYTE PERCENT MAN 5 % (0-0); NEUTROPHILS ABSOLUTE MAN 5.61 K/mm3 (1.96-9.15); PROMYELOCYTE ABSOLUTE MAN 0.11 K/mm3 (0.00-0.00); PROMYELOCYTE PERCENT MAN 1 % (0-0); SEG NEUTROPHILS PERCENT MAN 44 % (41-73); TOTAL CELLS COUNTED 100
--- NOTE | 2022-12-09 04:41 | NUR ---
SHIFT SUMMARY: PT REMAINS ALERT AND ORIENTED X4. ABLE TO FOLLOW COMMANDS AND MAKE NEEDS KNOWN. BP REMAINS SOFT, MAP >65. HR ST 120'S, AFEBRILE. PT NOW ON 10L HIFLOW. DENIES CP/PRESSURE/SOB. PT REFUSING TO WEAR HOSPITAL CPAP MACHINE, WILL BRING HOME CPAP LATER THIS AM. PT UNABLE TO VOID SINCE ADMISSION. BLADDER SCAN >200. PALLATIVE CARE CONSULT ORDERED. HGB 6.9 THIS MORNING, Q4 H&H ORDERED. PT DENIES PAIN AT THIS TIME. BED IN LOW, CALL LIGHT IN REACH, WILL REPORT TO ONCOMING RN.
--- NOTE | 2022-12-09 06:27 | NUR ---
UPDATE: DR HARDEN AT BEDSIDE. PT NOW AGREEING TO WEAR CPAP. ZOSYN INFUSING PER EMAR. NO NEW ORDERS RECEIVED AT THIS TIME.
--- NOTE | 2022-12-09 06:36 | NUR ---
UPDATE: PT WITH INCREASING SHORTNESS OF BREATH, RT AT BEDSIDE TO PLACE CPAP. BP REMAINS SOFT, MAP >65. HR ST 130'S. WILL CONTINUE TO MONITOR CLOSELY AND REPORT TO ONCOMING RN.
[2022-12-09 07:50] LABS: Hematocrit 22.9 % (37.0-53.0)
[2022-12-09 11:46] LABS: Hemoglobin 7.6 g/dL (13.5-17.5)
[2022-12-09 11:53] LABS: Hematocrit 24.5 % (37.0-53.0)
[2022-12-09 12:46] LABS: Anti-Xa UFH, PHA Monitoring <0.10 IU/mL; International Normalized Ratio 1.09; Prothrombin Time Results 11.4 Sec (9.7-11.5)
--- NOTE | 2022-12-09 13:30 | NUR ---
TRANSFER SUMMARY PATIENT ALERT, ORIENTED, WEAK, AND FATIGUED. SLEEPS FREQUENTLY BUT WAKES EASILY TO VERBAL STIMULI. ABLE TO SIT UP TO EDGE OF BED AND STAND WITH 1 ASSIST. TELE AFIB WITH RVR AT 120'S TO 130'S. PO BETA-JOSE HELD DUE TO SOFT SBP IN 90'S. DR SOMMERS AWARE AND STATED THAT RATE OF 130 WAS OKAY AT THIS TIME. RESP SHALLOW AND LABORED WITH DIM LS IN BILAT BASES, NOTED SMALL PE ON PE STUDY. BIPAP AT 12/7, UNABLE TO TOLERATE MORE THAN 5 MINUTES OFF BIPAP FOR AM PILLS AND WATER. RR 30'S TO 40'S. ORDERS FOR TRANSFER TO ICU AND HEPARIN INFUSION PLACED BY DR SOMMERS. DR SOMMERS ALSO AWARE OF ANEMIA. PATIENT TRANSPORTED TO ICU 10 AND BEDSIDE REPORT GIVEN TO MAISHA MIRANDA RN. SPOUSE PRESENT AND SHOWN TO ROOM IN ICU. ECHO PROCEDURE IN PROGRESS.
--- NOTE | 2022-12-09 13:33 | NUR ---
TRANSFER TO ICU PT TRANSFERED TO ICU 10 VIA BED AT 1308. BEDSIDE REPORT RECIEVED. PT IS AWAKE, ALERT, AND ORIENTED. PT ARRIVES ON BIPAP WITH 13L BLEED IN. PT DENIES CHEST PAIN OR SOB AT THIS TIME. HR 120'S, SPO2 HIGH 80'S. RT AT BEDSIDE, DISCUSSED PLACING PT ON V60 BIPAP AND ADJUSTING SETTINGS. ECHO AT BEDSIDE AT THIS TIME. PT SPOUSE AT BEDSIDE. LS DIM TO BASES. PT ABLE TO TURN SELF IN BED. WILL CONTINUE TO MONITOR.
--- NOTE | 2022-12-09 14:37 | NUR ---
ASPIRATION RISK/EDUCATION PT CONTINUES ON BIPAP 14/01, FIO2 50%. PT FOUND TO HAVE CAN OF "NON NICOTINE, MINT POUCHES" LAYING ON LAP. WHEN ASKED, PT REPORTS THAT HE CURRENTLY HAS A POUCH IN HIS LIP. PT EDUCATED ABOUT SEVERE ASPIRATION RISK AND AIRWAY OBSTRUCTION WHILE ON BIPAP WITH POUCH IN MOUTH. PT REFUSES TO SPIT OUT POUCH AT THIS TIME. WILL CONTINUE TO MONITOR.
--- NOTE | 2022-12-09 15:14 | NUR ---
Discussed with Dr. Sena the "pouch" in the patient's mouth while wearing BiPAP. He states pt has to choose between BiPAP mask and the pouch but cannot have both, and if pt refuses to spit out pouch, then to switch pt to hi-flow oxygen therapy. RT notified for hi-flow setup.
--- NOTE | 2022-12-09 18:22 | NUR ---
SHIFT SUMMARY NO ACUTE CHANGES THIS SHIFT. PT REMAINS INTUBATED AND SEDATED. VENT SETTINGS REMAIN AC 16, TV 360, PEEP 12, FIO2 55%. PT WITH THIN PINK/BLOODY SECRETIONS WITH ETT SUCTION. PT SEDATED WITH PROPOFOL AT 55 MCG/KG/MIN AND FENTANYL FIXED WING AIRCRAFT CREW CHIEF 100 MCG/HR. WITH SEDATION DECREASED PT IS ABLE TO FOLLOW SOME COMMANDS, AND CONTINUES TO REACH FOR ETT. MIDLINE PICC TO AMANDA REMAINS IN PLACE. HEPARIN INFUSING AT 25 UNIT/KG/HR, NS TKO, AND LEVOPHED AT 2 MCG/MIN. VITAL SIGNS HAVE REMAINED STABLE. PT WITH OGT IN PLACE WITH TF INFUSING AT GOAL RATE. AGUILAR TEMP PROBE REMAINS IN PLACE WITH LARGE AMOUNT OF CLEAR YELLOW OUTPUT NOTED. SBW RESTRAINTS REMAIN IN PLACE. PT SPOUSE AT BEDSIDE THROUGHOUT THE SHIFT. WILL CONTINUE TO MONITOR AND REPORT OFF TO ONCOMING RN.
--- NOTE | 2022-12-09 18:38 | NUR ---
SHIFT SUMMARY PT INITIALLY ON BIPAP AFTER TRANSFER TO ICU ON 14/10, FIO2 50%. THIS EVENING PT ABLE TO TAKE BREAK FROM BIPAP AND PLACED ON 5L O2 NC. PT DENIES CHEST PAIN OR SOB THROUGHOUT THE SHIFT. PT REMAINS ALERT AND ORIENTED, AND ANSWERS QUESTIONS APPROPRIATELY. PG TO AMANDA PLACED AND HEPARIN GTT STARTED AT 12 UNITS/KG/HR. NS TKO INFUSING. PT ABLE TO TAKE DRINKS OF WATER WELL OFF BIPAP. PT USING URINAL TO VOID INDEPENDENTLY. DR HOFFMAN INFORMED PT OF NEW ECHO RESULTS AND PLAN OF CARE AT THIS POINT. EXTENSIVE TIME SPENT WITH PT FURTHER EXPLAINING PLAN OF CARE. PT SON IN LAW MILAGROS UPDATED EXTENSIVELY VIA PHONE. VITAL SIGNS HAVE REMAINED STABLE WITH HR REMAINING 120'S THIS AFTERNOON. WILL CONTINUE TO MONITOR AND REPORT OFF TO ONCOMING RN.
--- NOTE | 2022-12-09 19:00 | NUR ---
ASSUMED CARE ASSUMED CARE OF PT. PT IS AWAKE AND ALERT. FLAT AFFECT, BUT PT IS CALM AND COOPERATIVE. DENIES C/O PAIN OR DISCOMFORT AT THIS TIME. DENIES DYSPNEA/SOB AT REST. STATES MILD SOB WITH EXERTION. OCCASIONAL NONPRODUCTIVE COUGH. MONITOR SHOWS ST, RATE 120s. BP STABLE WITH MAP >65. O2 5L NC. RESPIRATIONS EVEN AND UNLABORED AT REST. VOIDING WITHOUT DIFFICULT. HEPARIN INFUSING PER PHARMACY AT 12UNITS/KG/HR (18.2MLS/HR). POWERGLIDE NOTED TO AMANDA. SEE SHIFT ASSESSMENT FOR FULL ASSESSMENT.
[2022-12-09 22:29] LABS: Adenovirus Not Detected (NOT DETECT); Bordetella pertussis Not Detected (NOT DETECT); Chlamydophila pneumoniae Not Detected (NOT DETECT); Coronavirus 229E Not Detected (NOT DETECT); Coronavirus HKU1 Not Detected (NOT DETECT); Coronavirus NL63 Not Detected (NOT DETECT); Coronavirus OC43 Not Detected (NOT DETECT); Human Metapneumovirus Not Detected (NOT DETECT); Human Rhinovirus/Enterovirus Not Detected (NOT DETECT); Influenza A/2009-H1 Not Detected (NOT DETECT); Influenza A/H1 Not Detected (NOT DETECT); Influenza A/H3 Not Detected (NOT DETECT); Influenza B Not Detected (NOT DETECT); Mycoplasma pneumoniae Not Detected (NOT DETECT); Parainfluenza Virus 1 Not Detected (NOT DETECT); Parainfluenza Virus 2 Not Detected (NOT DETECT); Parainfluenza Virus 3 Not Detected (NOT DETECT); Parainfluenza Virus 4 Not Detected (NOT DETECT); Respiratory Syncytial Virus Not Detected (NOT DETECT); SARS-Cov-2 (COVID-19), BioFire Not Detected (NOT DETECT)
[2022-12-10] VITALS (77 sets, daily range): BP systolic 79–106; BP diastolic 57–79
[2022-12-10 04:14] LABS: Hemoglobin 6.6 g/dL (13.5-17.5)
[2022-12-10 04:16] LABS: Hematocrit 21.4 % (37.0-53.0); Mean Corpuscular HGB 23.2 pg (26.0-34.0); Mean Corpuscular HGB Conc 30.8 g/dL (31.5-36.5); Mean Corpuscular Volume 75 fL (80-100); NRBC ABSOLUTE 8.42 K/mm3 (0.00-0.02); NRBC Auto 57.8 /100 WBC (0.0-0.2); Platelet Count 76 K/mm3 (150-400); RDW Standard Deviation 79.4 fL (35.1-46.3); Red Blood Cell Count 2.85 M/mm3 (4.30-5.90); White Blood Cell Count 14.58 K/mm3 (4.00-11.30)
[2022-12-10 04:44] LABS: BAND PERCENT MAN 11 % (0-8); BASOPHILS PERCENT MAN 0 % (0-2); BLASTS PERCENT MAN 2 % (0-0); EOSINOPHILS ABSOLUTE MAN 1.45 K/mm3 (0.00-0.68); EOSINOPHILS PERCENT MAN 10 % (0-6); LYMPHOCYTES ABSOLUTE MAN 2.77 K/mm3 (0.84-5.20); LYMPHOCYTES PERCENT MAN 19 % (21-46); METAMYELOCYTE ABSOLUTE MAN 0.43 K/mm3 (0.00-0.00); METAMYELOCYTE PERCENT MAN 3 % (0-0); MONOCYTES ABSOLUTE MAN 0.29 K/mm3 (0.16-1.47); MONOCYTES PERCENT MAN 2 % (4-13); MYELOCYTE ABSOLUTE MAN 1.02 K/mm3 (0.00-0.00); MYELOCYTE PERCENT MAN 7 % (0-0); NEUTROPHILS ABSOLUTE MAN 8.31 K/mm3 (1.96-9.15); SEG NEUTROPHILS PERCENT MAN 46 % (41-73); TOTAL CELLS COUNTED 100
[2022-12-10 04:47] LABS: Albumin/Globulin Ratio 0.5 (0.8-1.8); Bilirubin, Total 1.4 mg/dL (0.1-1.0); Bun/Creatinine Ratio 15.2 (12.0-20.0); Calcium, Blood 8.7 mg/dL (8.5-10.1); Creatinine, Blood 1.32 mg/dL (0.60-1.20); Globulin, Blood 4.3 g/dL (2.2-4.0); Magnesium, Blood 1.8 mg/dL (1.6-2.4); Phosphorus, Blood 3.6 mg/dL (2.5-4.9); Potassium, Blood 3.6 mmol/L (3.5-5.5); Total Protein, Blood 6.3 g/dL (6.4-8.2)
--- NOTE | 2022-12-10 06:28 | NUR ---
SHIFT SUMMARY NO ACUTE CHANGES DURING NOC. SLEPT INTERMITTENTLY. VSS. HR 110-120S T/O NOC, ST WITH OCCASIONAL PVCs. TMAX 99.6F. BIPAP 14/7, BUR 10, FIO2 40% WHILE SLEEPING. O2 5L NC WHEN AWAKE. RESPIRATIONS EVEN AND UNLABORED, SHALLOW AT TIMES. OCCASIONAL NPC COUGH. DENIES C/O SOB. DENIES C/O PAIN OR DISCOMFORT. C/O INTERMITTENT NAUSEA- MEDICATED WITH ZOFRAN 4MG IV X 1 DOSE. VOIDING WITHOUT DIFFICULTY. HEPARIN INFUSING PER PHARMACY- NOW AT 14UNITS/KG/HR. TO RECEIVE ONE UNIT PRBC THIS AM PER ORDER. WILL REPORT TO ONCOMING RN WHEN AVAILABLE.
--- NOTE | 2022-12-10 11:08 | NUR ---
UPDATE PATIENT REFUSED ALL 0900 MEDICAITONS AND BREAKFAST THIS MORNING. PATIENT WAS UP TO CHAIR FOR 10 MINUTES BEFORE REQUESTING TO GO BACK TO BED. REFUSED VISIT FROM CARDIOLOGY. STATES "MY GOAL IS TO STAY ALIVE UNTIL THE SO THAT I CAN GO TO [place] AND BE SEEN". PATIENT'S SON IN LAW MILAGROS AT BEDSIDE. 1 UNIT PRBC FINISHED INF. HEPARIN INF @ 14 UNT/KG/HR. ON 5LPM VIA NC WITH SPO2 IN LOW 90'S.
[2022-12-10 15:13] LABS: Hematocrit 21.6 % (37.0-53.0)
--- NOTE | 2022-12-10 17:49 | NUR ---
SHIFT SUMMARY PATIENT TOLERATED BIPAP AND NC TODAY WITH SPO2 GREATER THAN 90%. HEPARIN REMAINS ON 14 UNITS/KG/HR. DECREASED APPETITE WITH MINIMAL PO INTAKE TODAY. NO BM. GOOD URINE OUTPUT USING URINAL. PATIENT REMAINS WITH FLAT AFFECT AND VERBALIZES FEELINGS SAD AND SCARED RELATED TO HIS ILLNESS AND PROGNOSIS. FAMILY WAS AT BEDSIDE MOST OF THE DAY. NO ACUTE EVENTS DURING THE SHIFT.
--- NOTE | 2022-12-10 19:00 | NUR ---
ASSUMED CARE OF PATIENT. RECEIVED REPORT FROM KENDRICK LOREDO. VSS WNL UPON ASSUMPTION OF CARE. SEE SHIFT ASSESSMENT FOR FURTHER DETAILS.
[2022-12-10 21:42] LABS: Hemoglobin 6.9 g/dL (13.5-17.5); Platelet Count 70 K/mm3 (150-400)
[2022-12-10 21:44] LABS: Hematocrit 21.7 % (37.0-53.0); Mean Corpuscular HGB 23.9 pg (26.0-34.0); Mean Corpuscular HGB Conc 31.8 g/dL (31.5-36.5); Mean Corpuscular Volume 75 fL (80-100); NRBC ABSOLUTE 6.59 K/mm3 (0.00-0.02); NRBC Auto 43.4 /100 WBC (0.0-0.2); RDW Coefficient Variation 27.6 % (11.7-14.2); RDW Standard Deviation 71.1 fL (35.1-46.3); Red Blood Cell Count 2.89 M/mm3 (4.30-5.90); White Blood Cell Count 15.18 K/mm3 (4.00-11.30)
[2022-12-10 22:05] LABS: BAND PERCENT MAN 9 % (0-8); BASOPHILS PERCENT MAN 0 % (0-2); BLASTS PERCENT MAN 1 % (0-0); EOSINOPHILS ABSOLUTE MAN 1.36 K/mm3 (0.00-0.68); EOSINOPHILS PERCENT MAN 9 % (0-6); LYMPHOCYTES ABSOLUTE MAN 1.82 K/mm3 (0.84-5.20); LYMPHOCYTES PERCENT MAN 12 % (21-46); METAMYELOCYTE ABSOLUTE MAN 0.15 K/mm3 (0.00-0.00); METAMYELOCYTE PERCENT MAN 1 % (0-0); MONOCYTES PERCENT MAN 0 % (4-13); MYELOCYTE ABSOLUTE MAN 0.45 K/mm3 (0.00-0.00); MYELOCYTE PERCENT MAN 3 % (0-0); NEUTROPHILS ABSOLUTE MAN 11.23 K/mm3 (1.96-9.15); SEG NEUTROPHILS PERCENT MAN 65 % (41-73); TOTAL CELLS COUNTED 100
[2022-12-11] VITALS (68 sets, daily range): BP systolic 83–117; BP diastolic 62–91
[2022-12-11 03:38] LABS: Hematocrit 24.6 % (37.0-53.0); Hemoglobin 7.9 g/dL (13.5-17.5); Mean Corpuscular HGB 24.5 pg (26.0-34.0); Mean Corpuscular HGB Conc 32.1 g/dL (31.5-36.5); Mean Corpuscular Volume 76 fL (80-100); RDW Coefficient Variation 25.9 % (11.7-14.2); RDW Standard Deviation 66.8 fL (35.1-46.3); Red Blood Cell Count 3.23 M/mm3 (4.30-5.90)
[2022-12-11 03:41] LABS: NRBC ABSOLUTE 5.84 K/mm3 (0.00-0.02); NRBC Auto 45.1 /100 WBC (0.0-0.2); Platelet Count 63 K/mm3 (150-400); White Blood Cell Count 12.94 K/mm3 (4.00-11.30)
[2022-12-11 03:51] LABS: Bun/Creatinine Ratio 18.4 (12.0-20.0); Calcium, Blood 8.6 mg/dL (8.5-10.1); Creatinine, Blood 1.41 mg/dL (0.60-1.20); Magnesium, Blood 2.2 mg/dL (1.6-2.4); Potassium, Blood 3.1 mmol/L (3.5-5.5)
[2022-12-11 05:37] LABS: BAND PERCENT MAN 7 % (0-8); BASOPHILS PERCENT MAN 0 % (0-2); EOSINOPHILS ABSOLUTE MAN 1.16 K/mm3 (0.00-0.68); EOSINOPHILS PERCENT MAN 9 % (0-6); LYMPHOCYTES % ATYPICAL MANUAL 3 % (0-0); LYMPHOCYTES ABSOLUTE MAN 2.71 K/mm3 (0.84-5.20); LYMPHOCYTES PERCENT MAN 18 % (21-46); METAMYELOCYTE ABSOLUTE MAN 0.38 K/mm3 (0.00-0.00); METAMYELOCYTE PERCENT MAN 3 % (0-0); MONOCYTES PERCENT MAN 7 % (4-13); NEUTROPHILS ABSOLUTE MAN 7.76 K/mm3 (1.96-9.15); SEG NEUTROPHILS PERCENT MAN 53 % (41-73); TOTAL CELLS COUNTED 100
--- NOTE | 2022-12-11 05:48 | NUR ---
SHIFT SUMMARY. PATIENT REMAINED ALERT AND ORIENTED X4 THROUGHOUT THE ENTIRETY OF THE SHIFT. PATIENT FREQUENTLY MENTIONED WANTING TO BE HOME IN HIS OWN BED AND HOW ANXIOUS HE WAS FOR THE CARE MANAGEMENT MEETING ON 12/11/22. HE DENIED ANY PAIN DURING THIS SHIFT. AFIB W/RVR AND SINUS TACHY DURING SHIFT, HR IN 90'S-100'S. BP SOFT THROUGHOUT SHIFT. PATIENT RECEIVING 5LPM O2 VIA NASAL CANNULA. HE HAS A BIPAP FOR SLEEP (SETTINGS OF 14/7 AND 30%) HOWEVER HE REQUESTED TO USE HIS NC AT BEDTIME AFTER THE BIPAP KEPT ALARMING. PT DEVELOPED A COUGH THIS SHIFT AND WAS ORDERED TESSALON PERLES WHICH PROVIDED RELIEF AND HE TOLERATED WELL. NO BM THIS SHIFT. PATIENT VOIDS INDEPENDENTLY USING BEDSIDE URINAL. URINE IS CLEAR, YELLOW, AND NOT MALODOROUS. PG TO AMANDA INFUSING HEPARIN AT 15. PIV TO RAC THAT FLUSHES AND DRAWS WELL. RECEIVED 2 UNITS OF PRBC'S ON 12/10/22. 12/11/22 HGB CAME BACK AT 7.9. WILL CONTINUE TO MONITOR AND REPORT TO ONCOMING NURSE.
[2022-12-11 10:47] LABS: Vancomycin, Trough 15.8 ug/mL (5.0-10.0)
--- NOTE | 2022-12-11 17:17 | NUR ---
SHIFT SUMMARY PT DID WELL THIS SHIFT. PT HAS REMAINED ALERT AND ORIENTED WHEN AWAKE. PT SLEPT OFF AND ON THIS AFTERNOON. PT HAS DENIED CHEST PAIN OR SOB. PT HAS BEEN VERY RECEPTIVE TO INFORMATION AND ENGAGED IN PLAN OF CARE. FAMILY MEETING THIS MORNING WITH DR HOFFMAN DISCUSSED AND OUTLINED GOALS OF CARE AND PLAN OF CARE EXTENSIVELY. PT UP TO SHOWER VIA CHAIR THIS MORNING, AND HAS BEEN UP TO RECLINER CHAIR MOST OF THIS AFTERNOON. PT TITRATED DOWN TO 4L O2 NC. VITAL SIGNS HAVE REMAINED STABLE. HEPARIN INFUSING AT 16 UNITS/KG/HR AND NS TKO. PT USING URINAL TO VOID INDEPENDENTLY. PT WITH IMPROVED APPETITE THIS AFTERNOON. PT SPOUSE AT BEDSIDE AT THIS TIME. WILL CONTINUE TO MONITOR AND REPORT OFF TO ONCOMING RN.
--- NOTE | 2022-12-11 19:13 | NUR ---
ASSUMED CARE OF PT AT 1900 PT AWAKE AND CONTRIBUTED TO BEDSIDE SHIFT REPORT. NO VISITORS AT THIS TIME. HR 101 BP 107/70 SPO2 92% SEE FULL ASSESSMENT FOR FURTHER INFORMATION.
[2022-12-11 20:53] LABS: Hematocrit 25.6 % (37.0-53.0); Hemoglobin 8.2 g/dL (13.5-17.5); Mean Corpuscular HGB 24.3 pg (26.0-34.0); Mean Corpuscular Volume 76 fL (80-100); RDW Coefficient Variation 26.5 % (11.7-14.2); RDW Standard Deviation 70.9 fL (35.1-46.3); Red Blood Cell Count 3.37 M/mm3 (4.30-5.90)
[2022-12-11 20:54] LABS: NRBC ABSOLUTE 5.83 K/mm3 (0.00-0.02); Platelet Count 68 K/mm3 (150-400); White Blood Cell Count 15.76 K/mm3 (4.00-11.30)
[2022-12-12] VITALS (24 sets, daily range): BP systolic 67–102; BP diastolic 52–73
[2022-12-12 04:29] LABS: Hemoglobin 7.8 g/dL (13.5-17.5)
[2022-12-12 04:35] LABS: Hematocrit 24.2 % (37.0-53.0); Mean Corpuscular HGB 24.3 pg (26.0-34.0); Mean Corpuscular HGB Conc 32.2 g/dL (31.5-36.5); Mean Corpuscular Volume 75 fL (80-100); RDW Coefficient Variation 26.3 % (11.7-14.2); RDW Standard Deviation 68.9 fL (35.1-46.3); Red Blood Cell Count 3.21 M/mm3 (4.30-5.90)
[2022-12-12 04:39] LABS: NRBC ABSOLUTE 5.26 K/mm3 (0.00-0.02); NRBC Auto 32.4 /100 WBC (0.0-0.2); Platelet Count 69 K/mm3 (150-400); White Blood Cell Count 16.25 K/mm3 (4.00-11.30)
[2022-12-12 04:58] LABS: Calcium, Blood 8.1 mg/dL (8.5-10.1); Creatinine, Blood 1.39 mg/dL (0.60-1.20); Potassium, Blood 2.3 mmol/L (3.5-5.5)
[2022-12-12 05:38] LABS: BAND PERCENT MAN 5 % (0-8); BASOPHILS PERCENT MAN 0 % (0-2); EOSINOPHILS PERCENT MAN 8 % (0-6); LYMPHOCYTES ABSOLUTE MAN 2.11 K/mm3 (0.84-5.20); LYMPHOCYTES PERCENT MAN 13 % (21-46); METAMYELOCYTE ABSOLUTE MAN 0.32 K/mm3 (0.00-0.00); METAMYELOCYTE PERCENT MAN 2 % (0-0); MONOCYTES ABSOLUTE MAN 0.32 K/mm3 (0.16-1.47); MONOCYTES PERCENT MAN 2 % (4-13); MYELOCYTE ABSOLUTE MAN 0.81 K/mm3 (0.00-0.00); MYELOCYTE PERCENT MAN 5 % (0-0); NEUTROPHILS ABSOLUTE MAN 11.37 K/mm3 (1.96-9.15); SEG NEUTROPHILS PERCENT MAN 65 % (41-73); TOTAL CELLS COUNTED 100
--- NOTE | 2022-12-12 06:20 | NUR ---
END OF SHIFT SUMMARY PT RESTED MOST OF THE NIGHT WITHOUT ISSUE. A/O X4. PLEASANT AND COOPERATIVE WITH CARE. RESP- 4 LPM NC MOST OF THE NIGHT. TRIED TO TITRATE DOWN WITH LITTLE LUCK KEEPING SPO2 >90%. BIPAP NOT WORN AT ALL THIS SHIFT. CARDIAC- SR AND OCCASIONAL SINUS TACHY. GI,- NO BM THIS SHIFT. USES URINAL WITHOUT ASSISTANCE. LASIX STARTED THIS SHIFT WITH SIGNIFICANT OUTPUT. SEE I/O CHARTING. PT TOLERATES PO MEDICATIONS AND FOOD WITHOUT DIFFICULTY. WILL CONTINUE TO MONITOR PT UNTIL SHIFT REPORT GIVEN.
--- NOTE | 2022-12-12 09:20 | NUR ---
ASSUMED CARE / DR HOFFMAN: REPORT RECEIVED FROM STARLA Shepherd, RN. ASSUMED CARE OF THIS PT AT APPROX 0700. ON ASSESSMENT, THE PT IS AWAKE, A&O TO ALL. HE IS PLEASANT & COOPERATIVE W/ CARE MEASURES. VERBALIZES THAT HE WILL LIKELY GO HOME "SOON" BUT ALSO STS THAT HE IS UNDERSTANDING OFF THE RESOURCES THAT NEED TO BE ALIGNED PRIOR TO HIS DEPARTURE FROM THE HOSPITAL. HE IS HOPING TO GO HOME BY MONDAY. LS ARE CLEAR, PT ON 4L NC W/ O2 SATS > 95%. MONITOR SHOWS TO SR W/ OCCASIONAL PACs, HR 80-90s. SBP 80-90s, MAP MAINTAINING > 65. PT HAS NO GI COMPLAINTS, IS TOLERATING PO INTAKE WELL. VOIDS URINE W/O DIFFICULTY, DIURESIS PER EMAR. SKIN CONDITION OVERALL INTACT, PT REPOSITIONING SELF PRN COMFORT. USES CALL LIGHT APPROPRIATELY PRN FOR ASSISTANCE. DR HOFFMAN AT BEDSIDE THIS AM TO EVAL PT. NO CHANGES TO PLAN OF CARE OVERALL. HE WOULD LIKE FURTHER POTASSIUM REPLETION TO BE GIVEN R/T CRITICAL LOW K 3.2 THIS AM. CLARIFIED THAT 60 MEQ GIVEN ALREADY, AN ADDITIONAL 100 MEQ KCL ORDERED & SPLIT INTO TWO DOSES PER PHARMACY RECOMMENDATION. POTASSIUM RECHECK ORDERED FOR 1400 TODAY. LAST DOSE OF LASIX SCHEDULED TO BE GIVEN THIS AM, PROVIDER HAS PLACED A NEW ORDER FOR LASIX TO START THIS EVENING. HOME O2 EVAL ORDERED & RT KERI, AWARE. SHE WOULD LIKE TO WORK W/ THE PT AT THE SAME TIME PHYSICAL THERAPY TODAY TO DETERMINE HOME O2 NEEDS. NO OTHER CHANGES AT THIS TIME. WILL CONTINUE TO MONITOR & UPDATE NEEDED.
--- NOTE | 2022-12-12 17:56 | NUR ---
SHIFT SUMMARY: NO ACUTE CHANGES SINCE PRIOR UPDATES. THE PT HAS DONE WELL THIS SHIFT, SITTING UP IN THE RECLINER FOR A NUMBER OF HOURS & WORKING W/ PHYSICAL THERAPY THIS AFTERNOON. LS CLEAR, PT ON 2L NC WHILE AWAKE, TITRATED UP TO 4L WHILE SLEEPING FOR DESATS TO 86% THAT QUICKLY RESOLVE W/O FURTHER INTERVENTION. STS USING HIS CPAP COMPLIANTLY AT HOME BUT DOES NOT LIKE THE MACHINE OR MASK HERE & WOULD LIKE TO AVOID USING IT. MONITOR SHOWS SR W/ HR 80-90s, SBP 90s W/ MAP MAINTAINING > 65. PT HAS NO GI COMPLAINTS & IS TOLERATING PO INTAKE WELL. VOIDS URINE W/O DIFFICULTY USING URINAL, DIURESIS PER EMAR. SKIN CONDITION OVERALL INTACT, PT REPOSITIONS SELF PRN FOR COMFORT. PLAN IS FOR DISCHARGE TO HOME TOMORROW IF ALL RESOURCES ARE ABLE TO BE ALIGNED FOR THIS PT TO SAFELY DEPART. WILL CONTINUE TO MONITOR & REPORT OFF TO ONCOMING RN.
[2022-12-13] VITALS (13 sets, daily range): BP systolic 89–105; BP diastolic 63–86
[2022-12-13 04:28] LABS: Calcium, Blood 8.5 mg/dL (8.5-10.1); Creatinine, Blood 1.46 mg/dL (0.60-1.20); Magnesium, Blood 1.9 mg/dL (1.6-2.4); Phosphorus, Blood 1.8 mg/dL (2.5-4.9); Potassium, Blood 4.1 mmol/L (3.5-5.5)
[2022-12-13 05:30] LABS: Hemoglobin 7.8 g/dL (13.5-17.5)
[2022-12-13 05:38] LABS: Hematocrit 24.5 % (37.0-53.0); Mean Corpuscular HGB 24.5 pg (26.0-34.0); Mean Corpuscular HGB Conc 31.8 g/dL (31.5-36.5); Mean Corpuscular Volume 77 fL (80-100); NRBC ABSOLUTE 4.23 K/mm3 (0.00-0.02); NRBC Auto 26.3 /100 WBC (0.0-0.2); RDW Coefficient Variation 26.8 % (11.7-14.2); RDW Standard Deviation 72.1 fL (35.1-46.3); Red Blood Cell Count 3.18 M/mm3 (4.30-5.90)
--- NOTE | 2022-12-13 05:56 | NUR ---
PATIENT AOX4. SR WITH STABLE BP OVERNIGHT. 2-4L NC. PATIENT REPORTS HAVING 2 BLACK BOWEL MOVEMENTS YESTERDAY, PROVIDER AWARE. PATIENT REPORTS THAT BOWEL MOVEMENT THIS MORNING IS MOSTLY BROWN. ADEQUATE URINE OUTPUT. HEPARIN GTT INFUSING.
[2022-12-13 07:04] LABS: BAND PERCENT MAN 13 % (0-8); BASOPHILS PERCENT MAN 0 % (0-2); EOSINOPHILS ABSOLUTE MAN 0.32 K/mm3 (0.00-0.68); EOSINOPHILS PERCENT MAN 2 % (0-6); LYMPHOCYTES ABSOLUTE MAN 2.25 K/mm3 (0.84-5.20); LYMPHOCYTES PERCENT MAN 14 % (21-46); METAMYELOCYTE PERCENT MAN 5 % (0-0); MONOCYTES ABSOLUTE MAN 0.64 K/mm3 (0.16-1.47); MONOCYTES PERCENT MAN 4 % (4-13); MYELOCYTE ABSOLUTE MAN 0.32 K/mm3 (0.00-0.00); MYELOCYTE PERCENT MAN 2 % (0-0); NEUTROPHILS ABSOLUTE MAN 11.75 K/mm3 (1.96-9.15); SEG NEUTROPHILS PERCENT MAN 60 % (41-73); TOTAL CELLS COUNTED 100
[2022-12-13 07:16] LABS: Platelet Count 70 K/mm3 (150-400)
--- NOTE | 2022-12-13 10:00 | NUR ---
ASSUMED CARE/PLAN OF CARE FOR THIS SHIFT PT A&OX 3. ANSWERS QUESTIONS APPROPRIATELY, FOLLOWS COMMANDS. STATES HE IS FEELING BETTER EACH DAY. EAGER FOR D/C. LUNGS CLEAR. SPEAKING IN FULL SENTENCES. SR ON MONITOR, RATE 90-100'S. BP STABLE. 2L VIA NC, O2 SATS >95%. INDEPENDENT IN ROOM. HEPARIN GTT INFUSING. DR PFEIFFER/DR MARTIN ROUNDS MDS AT BEDSIDE DISCUSSING PLAN OF CARE. RECOMMENDED STAYING ONE ADDITIONAL NIGHT FOR TRANSITION TO PO DIURETICS AND MONITORING. PT BECAME AGITATED AND IRRITABLE. DIFFICULT TO REDIRECT. MULTIPLE ATTEMPTS AT PT EDUCATION ON TESTS/PROCEDURES/RISKS/BENEFITS. PT REFUSING TO STAY. DR ZAZUETA AGREES TO D/C. PT TO HAVE CARDIOLOGY CONSULT IN [place] TOMORROW. ECHO RESULTS AND CARDIO CONSULT NOTES FAXED TO CLINIC. AT BEDSIDE. PT AWAITING [facility] FOR HOME O2 FOR DISCHARGE.
[2022-12-13] MEDS ORDERED: ENOX80I SC (11:37)
[2022-12-13] MEDS ORDERED: PANT40 PO (11:37)
[2022-12-13] MEDS ORDERED: BUME1 PO (11:55)
[2022-12-13] MEDS ORDERED: POTA10T PO (11:56)
[2022-12-13] MEDS ORDERED: PRED5 PO (11:56)
--- NOTE | 2022-12-13 13:37 | NUR ---
DISCHARGE INSTRUCTIONS REVIEWED. PT VERBALIZED UNDERSTANDING OF MED CHANGES AND F/U APPT AT [facility]. PT EDUCATED ON LOVENOX INJECTION, REPEAT DEMONSTRATION COMPLETED. OTD, TO MEET OUTSIDE. POWERGLIDE REMOVED, PRESSURE DRESSING APPLIED. ESCORTED OTD franco CALIX.
== END 2022-12-13 13:50 | disposition home or self-care (01) | DRG 871 ==
LOC: ER 20:16 → ICUE 23:28 → PCU 23:28 → ICUE 12-09 13:24
PROVIDERS: Emergency Medicine; Family Medicine; Internal Medicine; Internal Medicine Critical Care Medicine; ADMIT Internal Medicine
PROC: 5A0935A Assistance with Respiratory Ventilation, Less than 24 Consecutive Hours, High Flow/Velocity Cannula (ICD-10-PCS; principal; 2022-12-08)
PROC: 5A09357 Assistance with Respiratory Ventilation, Less than 24 Consecutive Hours, Continuous Positive Airway Pressure (ICD-10-PCS; 2022-12-08)
PROC: 3E03329 Introduction of Other Anti-infective into Peripheral Vein, Percutaneous Approach (ICD-10-PCS; 2022-12-08)
PROC: 30233N1 Transfusion of Nonautologous Red Blood Cells into Peripheral Vein, Percutaneous Approach (ICD-10-PCS; 2022-12-10)
DX: A41.1 Sepsis due to other specified staphylococcus (principal); I21.4 Non-ST elevation (NSTEMI) myocardial infarction; I50.21 Acute systolic (congestive) heart failure; J96.01 Acute respiratory failure with hypoxia; J18.9 Pneumonia, unspecified organism; R57.0 Cardiogenic shock; I26.99 Other pulmonary embolism without acute cor pulmonale; I13.0 Hypertensive heart and chronic kidney disease with heart failure and stage 1 through stage 4 chronic kidney disease, or unspecified chronic kidney disease; C95.90 Leukemia, unspecified not having achieved remission; E27.40 Unspecified adrenocortical insufficiency; I50.32 Chronic diastolic (congestive) heart failure; N17.9 Acute kidney failure, unspecified; I24.9 Acute ischemic heart disease, unspecified; Z20.822 Contact with and (suspected) exposure to COVID-19; E87.6 Hypokalemia; I95.9 Hypotension, unspecified; I48.0 Paroxysmal atrial fibrillation; E66.9 Obesity, unspecified; D69.6 Thrombocytopenia, unspecified; D46.9 Myelodysplastic syndrome, unspecified; E78.5 Hyperlipidemia, unspecified; I25.10 Atherosclerotic heart disease of native coronary artery without angina pectoris; N18.30 Chronic kidney disease, stage 3 unspecified; E11.22 Type 2 diabetes mellitus with diabetic chronic kidney disease; M10.9 Gout, unspecified; N40.0 Benign prostatic hyperplasia without lower urinary tract symptoms; G47.33 Obstructive sleep apnea (adult) (pediatric); D63.1 Anemia in chronic kidney disease; Z95.5 Presence of coronary angioplasty implant and graft; Z95.828 Presence of other vascular implants and grafts; I25.2 Old myocardial infarction; Z88.6 Allergy status to analgesic agent; Z79.899 Other long term (current) drug therapy; Z79.01 Long term (current) use of anticoagulants; Z79.891 Long term (current) use of opiate analgesic; Z99.89 Dependence on other enabling machines and devices; Z86.718 Personal history of other venous thrombosis and embolism; Z87.891 Personal history of nicotine dependence; Z85.51 Personal history of malignant neoplasm of bladder; Z85.528 Personal history of other malignant neoplasm of kidney; Z87.19 Personal history of other diseases of the digestive system; Z92.21 Personal history of antineoplastic chemotherapy; Z68.24 Body mass index [BMI] 24.0-24.9, adult
CPT/HCPCS: 0202U; 0241U; 36415; 36430; 71045; 71046; 71260; 80048; 80053; 80202; 83605; 83690; 83735; 83880; 84100; 84132; 84145; 84484; 85014; 85018; 85025; 85027; 85520; 85610; 85730; 86850; 86900; 86901; 86923; 87040; 87077; 93005; 93010; 94660; 94760; 94761; 94762; 96361; 96374-59; 96375-59; 97116; 97162; 97530; 99285-25; A9270; C1751; C8929; C9113; J0456; J0696; J1644; J1650; J1720; J1940; J2405; J2543; J3010; J3370; J3480; J7030; J7050; J7512; P9016; Q9957; Q9967

== ENCOUNTER 2022-12-28 08:12 | Observation (INO) | payer OTHER ==
[~2022-12-28] VITALS: Ht 177.8 cm; Wt 75.8 kg
[~2022-12-28 08:12] MED LIST changes: +ENOX80I SC; +PANT40 PO
[2022-12-28 09:06] LABS: Albumin, Blood 2.8 g/dL (3.4-5.0); Albumin/Globulin Ratio 0.6 (0.8-1.8); Bilirubin, Total 0.7 mg/dL (0.1-1.0); Bun/Creatinine Ratio 21.7 (12.0-20.0); Calcium, Blood 9.2 mg/dL (8.5-10.1); Creatinine, Blood 1.15 mg/dL (0.60-1.20); Globulin, Blood 4.7 g/dL (2.2-4.0); Potassium, Blood 4.3 mmol/L (3.5-5.5); Total Protein, Blood 7.5 g/dL (6.4-8.2)
[2022-12-28 09:12] LABS: Hematocrit 19.4 % (37.0-53.0); Mean Corpuscular HGB 24.1 pg (26.0-34.0); Mean Corpuscular HGB Conc 30.9 g/dL (31.5-36.5); Mean Corpuscular Volume 78 fL (80-100); NRBC ABSOLUTE 2.27 K/mm3 (0.00-0.02); NRBC Auto 37.2 /100 WBC (0.0-0.2); RDW Coefficient Variation 27.7 % (11.7-14.2); RDW Standard Deviation 73.7 fL (35.1-46.3); Red Blood Cell Count 2.49 M/mm3 (4.30-5.90)
[2022-12-28 09:33] LABS: BAND PERCENT MAN 5 % (0-8); BASOPHILS PERCENT MAN 0 % (0-2); EOSINOPHILS ABSOLUTE MAN 1.28 K/mm3 (0.00-0.68); EOSINOPHILS PERCENT MAN 21 % (0-6); LYMPHOCYTES ABSOLUTE MAN 3.11 K/mm3 (0.84-5.20); LYMPHOCYTES PERCENT MAN 51 % (21-46); MONOCYTES PERCENT MAN 0 % (4-13); SEG NEUTROPHILS PERCENT MAN 23 % (41-73); TOTAL CELLS COUNTED 100
[2022-12-28 09:41] LABS: Platelet Count 202 K/mm3 (150-400)
[2022-12-28 15:42] VITALS: BP 111/74
--- NOTE | 2022-12-28 15:45 | NUR ---
ADMIT: Patient arrived to PCU 08 via bed and was able to ambulate to the bed. He is alert and oriented x4. He denies pain at this time, he states he came in because he was having chest pain-he took a total of 12 nitro. He also had a GARNICA and left shoulder pain in the ER that he states was relieved by [place]. HRR, ST in the 120s. Blood pressure is a little higher 111/74. He denies chest pain or pressure at this time. LS DIM in the bases, pt has occasional dry NPC. His biox is high 90s on RA. BT+. PPP, trace edema noted. Admission history done and home medications reconciled. at bedside, she brought in his home C-Pap. He denies other needs at this time. Call light in reach.
[2022-12-28 17:02] LABS: Adenovirus Not Detected (NOT DETECT); Bordetella pertussis Not Detected (NOT DETECT); Chlamydophila pneumoniae Not Detected (NOT DETECT); Coronavirus 229E Not Detected (NOT DETECT); Coronavirus HKU1 Not Detected (NOT DETECT); Coronavirus NL63 Not Detected (NOT DETECT); Coronavirus OC43 Not Detected (NOT DETECT); Human Metapneumovirus Not Detected (NOT DETECT); Human Rhinovirus/Enterovirus Not Detected (NOT DETECT); Influenza A/2009-H1 Not Detected (NOT DETECT); Influenza A/H1 Not Detected (NOT DETECT); Influenza A/H3 Not Detected (NOT DETECT); Influenza B Not Detected (NOT DETECT); Mycoplasma pneumoniae Not Detected (NOT DETECT); Parainfluenza Virus 1 Not Detected (NOT DETECT); Parainfluenza Virus 2 Not Detected (NOT DETECT); Parainfluenza Virus 3 Not Detected (NOT DETECT); Parainfluenza Virus 4 Not Detected (NOT DETECT); Respiratory Syncytial Virus Not Detected (NOT DETECT); SARS-Cov-2 (COVID-19), BioFire Not Detected (NOT DETECT)
[2022-12-28 19:46] VITALS: BP 101/90
[2022-12-29 00:16] VITALS: BP 101/79
[2022-12-29 01:42] LABS: Hematocrit 25.3 % (37.0-53.0); Mean Corpuscular HGB 24.6 pg (26.0-34.0); Mean Corpuscular HGB Conc 31.6 g/dL (31.5-36.5); Mean Corpuscular Volume 78 fL (80-100); RDW Coefficient Variation 23.9 % (11.7-14.2); RDW Standard Deviation 62.7 fL (35.1-46.3); Red Blood Cell Count 3.25 M/mm3 (4.30-5.90)
[2022-12-29 02:25] LABS: White Blood Cell Count 4.67 K/mm3 (4.00-11.30)
[2022-12-29 02:26] LABS: NRBC ABSOLUTE 2.73 K/mm3 (0.00-0.02); NRBC Auto 58.5 /100 WBC (0.0-0.2)
[2022-12-29 02:33] LABS: BAND PERCENT MAN 3 % (0-8); BASOPHILS PERCENT MAN 0 % (0-2); EOSINOPHILS PERCENT MAN 0 % (0-6); LYMPHOCYTES ABSOLUTE MAN 1.96 K/mm3 (0.84-5.20); LYMPHOCYTES PERCENT MAN 42 % (21-46); MONOCYTES ABSOLUTE MAN 0.18 K/mm3 (0.16-1.47); MONOCYTES PERCENT MAN 4 % (4-13); NEUTROPHILS ABSOLUTE MAN 2.52 K/mm3 (1.96-9.15); SEG NEUTROPHILS PERCENT MAN 51 % (41-73); TOTAL CELLS COUNTED 100
[2022-12-29 02:36] LABS: Platelet Count 195 K/mm3 (150-400)
[2022-12-29 02:37] LABS: Albumin, Blood 2.9 g/dL (3.4-5.0); Albumin/Globulin Ratio 0.7 (0.8-1.8); Bilirubin, Total 0.8 mg/dL (0.1-1.0); Bun/Creatinine Ratio 17.1 (12.0-20.0); Creatinine, Blood 1.29 mg/dL (0.60-1.20); Globulin, Blood 4.4 g/dL (2.2-4.0); Potassium, Blood 4.1 mmol/L (3.5-5.5); Total Protein, Blood 7.3 g/dL (6.4-8.2)
[2022-12-29 03:49] VITALS: BP 100/73
--- NOTE | 2022-12-29 05:56 | NUR ---
PT SUMMARY: NO ACUTE CHANGE FOR THE SHIFT. HGB WENT UP TO 8.0. TROPONIN KEEPS TRENDING UP LAST DRAW AT 5AM AWAITING FOR RESULT LAST TROP WAS AT 414. PT DENIED CHEST PAIN OR ANY DISCOMFORT FOR THE SHIFT. VITALS HRR ST AT 120'S, SATS ABOVE 93% ON CPAP AND RA, AFEBRILE. PT INDEPENDENT IN THE ROOM USES URINAL FOR VOIDING. PT SLEPT MOST OF THE NIGHT. NO OTHER ISSUES REPROTED, PT ABLE TO MAKE NEEDS KNOWN, ALERT AND ORIENTED AT BASELINE. LOVENOX DOSE STARTED LAST NIGHT PT AGREED TO BE ADMINSITERED GIVEN HX OF GI BLEED, NO GI BLEED SYMPTOMS FOR THE SHIFT. CALL LIGHTS IN REACH WILL REPORT TO ONCOMING SHIFT.
[2022-12-29 08:11] VITALS: BP 94/61
[2022-12-29 11:54] VITALS: BP 99/74
[2022-12-29] MEDS ORDERED: METO25ER PO (14:13)
--- NOTE | 2022-12-29 14:50 | NUR ---
DISCHARGE NOTE PT DISCHARGED AT 1445. PT ABLE TO DRESS SELF INDEPENDENTLY, ALL BELONGINGS GATHERED BY PT AND THIS RN. BILATERAL IV'S REMOVED, CATHETER TIPS INTACT. EDUCATION AND DISCHARGE INSTRUCTIONS REVIEEWED BY THIS RN WITH PT AND SPOUSE; PT VOICED UNDERSTANDING OF INFORMATION. PT WHEELED TO PRIVATE VEHICLE BY STAFF WITHOUT DIFFICULTIES.
== END 2022-12-29 15:11 | disposition home or self-care (01) ==
LOC: ER 08:12 → ERHOLD 08:13 → PCU 15:44
PROVIDERS: Emergency Medicine; ADMIT Internal Medicine
DX: I13.0 Hypertensive heart and chronic kidney disease with heart failure and stage 1 through stage 4 chronic kidney disease, or unspecified chronic kidney disease (principal); E11.22 Type 2 diabetes mellitus with diabetic chronic kidney disease; N18.30 Chronic kidney disease, stage 3 unspecified; I50.23 Acute on chronic systolic (congestive) heart failure; I25.10 Atherosclerotic heart disease of native coronary artery without angina pectoris; D46.9 Myelodysplastic syndrome, unspecified; I48.0 Paroxysmal atrial fibrillation; E78.5 Hyperlipidemia, unspecified; M10.9 Gout, unspecified; N40.0 Benign prostatic hyperplasia without lower urinary tract symptoms; G47.33 Obstructive sleep apnea (adult) (pediatric); I25.2 Old myocardial infarction; Z87.891 Personal history of nicotine dependence; Z88.6 Allergy status to analgesic agent; Z79.899 Other long term (current) drug therapy; Z20.822 Contact with and (suspected) exposure to COVID-19
CPT/HCPCS: 0202U; 36415; 36430; 71046; 71275; 80053; 83880; 84484; 85025; 86850; 86900; 86901; 86923; 90471; 93005; 93010; 96372; 96374; 96376; 97162; 97165; 97530; 99285-25; A9270; G0008; G0378; J1650; J7030; J7512; P9016; Q2036; Q9967

== ENCOUNTER 2023-01-10 02:21 | Day surgery (SDC) | payer OTHER ==
[2023-01-09 13:45] LABS: Hematocrit 22.5 % (37.0-53.0); Hemoglobin 7.3 g/dL (13.5-17.5); Mean Corpuscular HGB 25.6 pg (26.0-34.0); Mean Corpuscular HGB Conc 32.4 g/dL (31.5-36.5); Mean Corpuscular Volume 79 fL (80-100); RDW Coefficient Variation 22.9 % (11.7-14.2); RDW Standard Deviation 61.1 fL (35.1-46.3); Red Blood Cell Count 2.85 M/mm3 (4.30-5.90)
[2023-01-09 13:46] LABS: NRBC ABSOLUTE 1.08 K/mm3 (0.00-0.02); NRBC Auto 13.1 /100 WBC (0.0-0.2)
[2023-01-09 13:56] LABS: BAND PERCENT MAN 4 % (0-8); BASOPHILS PERCENT MAN 0 % (0-2); EOSINOPHILS PERCENT MAN 30 % (0-6); LYMPHOCYTES PERCENT MAN 24 % (21-46); MONOCYTES PERCENT MAN 0 % (4-13); SEG NEUTROPHILS PERCENT MAN 42 % (41-73); TOTAL CELLS COUNTED 100
[2023-01-09 14:04] LABS: EOSINOPHILS ABSOLUTE MAN 2.47 K/mm3 (0.00-0.68); LYMPHOCYTES ABSOLUTE MAN 1.98 K/mm3 (0.84-5.20); NEUTROPHILS ABSOLUTE MAN 3.79 K/mm3 (1.96-9.15); Platelet Count 109 K/mm3 (150-400); White Blood Cell Count 8.25 K/mm3 (4.00-11.30)
[2023-01-10 15:00] VITALS: BP 101/66
[2023-01-10 15:22] VITALS: BP 89/62
[2023-01-10 16:18] VITALS: BP 92/65
[2023-01-10 17:58] VITALS: BP 100/70
== END 2023-01-10 17:20 | disposition home or self-care (01) ==
LOC: ATC 02:21 → LAB FUT 12-29 16:40 → EDSTATUS 12-29 16:40
PROVIDERS: Internal Medicine Hematology & Oncology
DX: C64.2 Malignant neoplasm of left kidney, except renal pelvis (principal); C93.10 Chronic myelomonocytic leukemia not having achieved remission
CPT/HCPCS: 36415; 36430; 85025; 86850; 86900; 86901; 86923; J7050; P9016

== ENCOUNTER 2023-01-19 13:28 | Inpatient (IN) | payer OTHER, MEDICARE ==
[~2023-01-19] VITALS: Ht 177.8 cm; Wt 76.5 kg
[2023-01-19 14:18] LABS: Hematocrit 24.9 % (37.0-53.0); Hemoglobin 7.9 g/dL (13.5-17.5); Mean Corpuscular HGB 27.1 pg (26.0-34.0); Mean Corpuscular HGB Conc 31.7 g/dL (31.5-36.5); Mean Corpuscular Volume 85 fL (80-100); Mean Platelet Volume 13.1 fL (9.1-12.4); Platelet Count 334 K/mm3 (150-400); RDW Coefficient Variation 22.6 % (11.7-14.2); RDW Standard Deviation 59.5 fL (35.1-46.3); Red Blood Cell Count 2.92 M/mm3 (4.30-5.90)
[2023-01-19 14:35] LABS: Albumin, Blood 3.1 g/dL (3.4-5.0); Albumin/Globulin Ratio 0.6 (0.8-1.8); Bilirubin, Total 0.5 mg/dL (0.1-1.0); Bun/Creatinine Ratio 20.5 (12.0-20.0); Calcium, Blood 9.2 mg/dL (8.5-10.1); Creatinine, Blood 0.97 mg/dL (0.60-1.20); Globulin, Blood 5.1 g/dL (2.2-4.0); Magnesium, Blood 2.2 mg/dL (1.6-2.4); Potassium, Blood 4.2 mmol/L (3.5-5.5); Total Protein, Blood 8.2 g/dL (6.4-8.2)
[2023-01-19 14:40] LABS: NRBC ABSOLUTE 0.69 K/mm3 (0.00-0.02); NRBC Auto 39.4 /100 WBC (0.0-0.2); White Blood Cell Count 1.75 K/mm3 (4.00-11.30)
[2023-01-19 14:44] LABS: BASOPHILS ABSOLUTE MAN 0.01 K/mm3 (0.00-0.23); BASOPHILS PERCENT MAN 1 % (0-2); EOSINOPHILS ABSOLUTE MAN 0.38 K/mm3 (0.00-0.68); EOSINOPHILS PERCENT MAN 22 % (0-6); LYMPHOCYTES % ATYPICAL MANUAL 3 % (0-0); LYMPHOCYTES ABSOLUTE MAN 1.01 K/mm3 (0.84-5.20); LYMPHOCYTES PERCENT MAN 55 % (21-46); MONOCYTES ABSOLUTE MAN 0.03 K/mm3 (0.16-1.47); MONOCYTES PERCENT MAN 2 % (4-13); NEUTROPHILS ABSOLUTE MAN 0.29 K/mm3 (1.96-9.15); SEG NEUTROPHILS PERCENT MAN 17 % (41-73); TOTAL CELLS COUNTED 100
[2023-01-19 15:00] LABS: Base Excess Venous 1.1 mmol/L; Bicarbonate Venous 25.1 mmol/L (24.0-30.0); PCO2 Venous 30.8 mmHg (38-42); pH Blood Venous 7.51 (7.34-7.37)
[2023-01-19 15:14] LABS: International Normalized Ratio 1.02; Prothrombin Time Results 10.7 Sec (9.7-11.5)
[2023-01-19 18:30] VITALS: BP 98/72
--- NOTE | 2023-01-19 19:19 | NUR ---
LATE ENTRY-ER ADMIT PT ALERT AND ORIENTED X4. R/A, RECEIVING BLOOD TRANSFUSION ON ARRIVAL. ORIENTED TO THE ROOM AND INTRODUCED TO THE [facility]. PT IS INDEPENDENT AT BASELINE, EMPHASIZED IMPORTANCE OF CALLING BEFORE GETTING OUT OF BED FOR THE FIRST FEW TIME. PT IS AGREEABLE. PER PT. HE IS NOT DIABETIC THAT HE IS AWARE OF. LIMITS HIS FLUIDS TO 1800ML DAILY AND STICKS TO A LOW SODIUM DIET. PT IS ABLE TO MAKE NEEDS KNOWN. BED IS IN THE LOWEST POSITION WITH CALL LIGHT IN REACH. IS AT BEDSIDE.
--- NOTE | 2023-01-19 20:56 | NUR ---
HOSPITALIST MAISHA CALLED FOR A CRITICAL TROPONIN; PT TO CONTINUE TELE, CHEWABLE ASPIRIN TO START TOMORROW MORNING-SEE EMAR, AND NPO AT MIDNIGHT.
--- NOTE | 2023-01-20 01:35 | NUR ---
HOSPITALIST CALLED FOR CRITICAL TROPONINI OF 2330. NO NEW ORDERS GIVEN AT THIS TIME.
[2023-01-20 02:46] VITALS: BP 104/71
--- NOTE | 2023-01-20 04:25 | NUR ---
PT IS ALERT AND ORIENTED TO PERSON,PLACE,TIME, AND SITUATION. PT IS ABLE TO MAKE HIS NEEDS KNOWN. PT REPORTS THAT HIS RIGHT EYE IS BECOMING HARD TO SEE DETAILS OUT OFF-RINSED EYE AND APPLIED COOL COMPRESS-PT REPORTS HIS EYE FEELS BETTER AND CAN SEE SLIGHTLY BETTER AFTER THE RINSE. PT SLEPT MOST OF NIGHT-RESPIRATIONS EQUAL AND UNLABORED. PT ON RA WITH NO C/O SOB. PT DENIES CHEST PAIN/PRESSURE/TIGHTNESS. SUPRAPUBIC CATHETER BANDAGED CHANGED AND INSERTION SITE CLEANED. PT DENIES PAIN. PT IS ABLE TO MAKE HIS NEEDS KNOWN. NO S/S OF DISTRESS NOTED. BED IS LOCKED IN THE LOWEST POSITION WITH CALL LIGHT IN REACH.
--- NOTE | 2023-01-20 06:04 | NUR ---
SHIFT SUMMARY PT IS ALERT AND ORIENTED TO PERSON, PLACE, TIME, AND SITUATION. PT IS PLEASANT AND COOPERATIVE WITH CARE. TROPONINS HAVE BEEN TRENDING UP(PT HAS BEEN ASYMPTOMATIC)-SEE LABS. PT DENIES CHEST PAIN/PRESSURE/TIGHTNESS. PT HAD A UNIT OF BLOOD YESTERDAY IN THE ED-FINISHED ON MEDICAL FLOOR; LAST Hgb-7.9.PT ON RA AND USES HIS HOME CPAP AT NIGHT. PT IS ON CONTINUOUS BIOX SATING >94%. PT DENIES PAIN. PT IS ABLE TO AMBULATE TO THE BATHROOM INDEPENDENTLY WITH A STEADY GAIT-PT WILL CALL IF HE FEELS LIGHTHEADED OR DIZZINESS. PT ABLE TO SLEEP OFF AND ON T/O SHIFT-RESPIRATIONS EQUAL AND UNLABORED. PT IS NPO AT 2339 ON 01/19/23 FOR POSSIBLE CARDIAC CONSULT. BED IS LOCKED IN THE LOWEST POSITION WITH CALL LIGHT IN REACH. NO S/S OF DISTRESS NOTED.
[2023-01-20 08:04] VITALS: BP 95/71
[2023-01-20 09:40] LABS: Hematocrit 29.5 % (37.0-53.0); Hemoglobin 9.4 g/dL (13.5-17.5); Mean Corpuscular HGB 27.7 pg (26.0-34.0); Mean Corpuscular HGB Conc 31.9 g/dL (31.5-36.5); Mean Corpuscular Volume 87 fL (80-100); NRBC ABSOLUTE 0.58 K/mm3 (0.00-0.02); NRBC Auto 29.1 /100 WBC (0.0-0.2); Platelet Count 434 K/mm3 (150-400); RDW Coefficient Variation 22.4 % (11.7-14.2); RDW Standard Deviation 61.4 fL (35.1-46.3); Red Blood Cell Count 3.39 M/mm3 (4.30-5.90); White Blood Cell Count 1.99 K/mm3 (4.00-11.30)
[2023-01-20 09:59] LABS: BASOPHILS PERCENT MAN 0 % (0-2); EOSINOPHILS ABSOLUTE MAN 0.35 K/mm3 (0.00-0.68); EOSINOPHILS PERCENT MAN 18 % (0-6); LYMPHOCYTES ABSOLUTE MAN 1.51 K/mm3 (0.84-5.20); LYMPHOCYTES PERCENT MAN 76 % (21-46); MONOCYTES PERCENT MAN 0 % (4-13); NEUTROPHILS ABSOLUTE MAN 0.11 K/mm3 (1.96-9.15); SEG NEUTROPHILS PERCENT MAN 6 % (41-73); TOTAL CELLS COUNTED 50
[2023-01-20 10:10] LABS: Albumin, Blood 3.1 g/dL (3.4-5.0); Albumin/Globulin Ratio 0.6 (0.8-1.8); Bilirubin, Total 0.7 mg/dL (0.1-1.0); Bun/Creatinine Ratio 21.1 (12.0-20.0); Calcium, Blood 9.2 mg/dL (8.5-10.1); Creatinine, Blood 0.85 mg/dL (0.60-1.20); International Normalized Ratio 1.03; Magnesium, Blood 2.3 mg/dL (1.6-2.4); Potassium, Blood 4.1 mmol/L (3.5-5.5); Prothrombin Time Results 10.8 Sec (9.7-11.5); Total Protein, Blood 8.1 g/dL (6.4-8.2)
--- NOTE | 2023-01-20 10:49 | NUR ---
ECHO AT BEDSIDE NOW
[2023-01-20 11:26] VITALS: BP 108/79
[2023-01-20 15:39] VITALS: BP 102/73
--- NOTE | 2023-01-20 17:59 | NUR ---
ALERT AND OREINTED X4, ECHO DONE, LABS DRAWNS, TROPONIN DECREASING, DENEIS PAIN OR PRESSURE, PATIENT TO STAY ANOTHER NIGHT TO MONITOR HEART, CARDIOLOGY NOT CONSULTED, PATIENT EATING A ADA DIET, VERY PLEASANT TO CARE, WILL RELAY TO PM RN, CALL LIGHT WITH IN REACH
[2023-01-20 19:41] VITALS: BP 110/77
[2023-01-21 02:29] VITALS: BP 105/76
--- NOTE | 2023-01-21 04:53 | NUR ---
END OF SHIFT SUMMARY PT A&O x4, VSS. CBG WAS 122, NO INSULIN COVERAGE NEEDED ACCORDING TO THE SLIDING INSULIN SCALE. PT CALM AND COOPERATIVE WITH CARE PROVIDED. PT ABLE TO MAKE NEEDS KNOWN. UNEVENTFUL OVERNIGHT, PT SLEPT WELL. RESP EVEN AND UNLABORED. PT TOLERATED C-PAP ALL NIGHT. CALL LIGHT WITHIN REACH, WCTM.
[2023-01-21 05:38] LABS: Albumin, Blood 3.3 g/dL (3.4-5.0); Anion Gap 7 mmol/L (6-16); Blood Urea Nitrogen 21 mg/dL (8-24); Bun/Creatinine Ratio 18.6 (12.0-20.0); CO2, Blood 29 mmol/L (21-32); Calcium, Blood 9.2 mg/dL (8.5-10.1); Chloride, Blood 99 mmol/L (98-108); Creatinine, Blood 1.13 mg/dL (0.60-1.20); Glomerular Filtration Rate 71 (60-); Glucose, Blood 143 mg/dL (70-99); Magnesium, Blood 2.4 mg/dL (1.6-2.4); Phosphorus, Blood 3.9 mg/dL (2.5-4.9); Potassium, Blood 4.1 mmol/L (3.5-5.5); Sodium, Blood 135 mmol/L (136-145)
--- NOTE | 2023-01-21 06:13 | NUR ---
CRITICAL LAB VALUE PT's TROPONIN LEVEL THIS MORNING WAS 675. YESTERDAY TROPONIN WAS 1,578. PT DENIES CHEST PAIN, NO SOB, NO GARNICA. WCTM
[2023-01-21 07:18] VITALS: BP 100/76
[2023-01-21] MEDS ORDERED: ASPI81CH PO (10:29)
== END 2023-01-21 11:07 | disposition home or self-care (01) | DRG 811 ==
LOC: ER 13:28 → MEDS 18:10 → ENPENDDIS 01-21 11:02 → MEDS 01-21 11:07
PROVIDERS: Student in an Organized Health Care Education/Training Program; ADMIT Family Medicine
PROC: 30233N1 Transfusion of Nonautologous Red Blood Cells into Peripheral Vein, Percutaneous Approach (ICD-10-PCS; principal; 2023-01-19)
PROC: 5A09357 Assistance with Respiratory Ventilation, Less than 24 Consecutive Hours, Continuous Positive Airway Pressure (ICD-10-PCS; 2023-01-20)
DX: D46.9 Myelodysplastic syndrome, unspecified (principal); I21.4 Non-ST elevation (NSTEMI) myocardial infarction; E87.3 Alkalosis; I13.0 Hypertensive heart and chronic kidney disease with heart failure and stage 1 through stage 4 chronic kidney disease, or unspecified chronic kidney disease; E11.22 Type 2 diabetes mellitus with diabetic chronic kidney disease; N18.30 Chronic kidney disease, stage 3 unspecified; I25.10 Atherosclerotic heart disease of native coronary artery without angina pectoris; I48.0 Paroxysmal atrial fibrillation; E78.5 Hyperlipidemia, unspecified; G47.33 Obstructive sleep apnea (adult) (pediatric); D63.1 Anemia in chronic kidney disease; I50.9 Heart failure, unspecified; M10.9 Gout, unspecified; N40.0 Benign prostatic hyperplasia without lower urinary tract symptoms; Z87.19 Personal history of other diseases of the digestive system; Z98.890 Other specified postprocedural states; Z79.899 Other long term (current) drug therapy; Z79.52 Long term (current) use of systemic steroids; Z79.891 Long term (current) use of opiate analgesic; Z85.6 Personal history of leukemia; I25.2 Old myocardial infarction; Z85.528 Personal history of other malignant neoplasm of kidney; Z86.711 Personal history of pulmonary embolism; Z86.718 Personal history of other venous thrombosis and embolism; Z85.51 Personal history of malignant neoplasm of bladder; Z92.21 Personal history of antineoplastic chemotherapy; Z88.8 Allergy status to other drugs, medicaments and biological substances
CPT/HCPCS: 36415; 36430; 71046; 80053; 80069; 82803; 82947; 83690; 83735; 83880; 84484; 85025; 85610; 85730; 86850; 86900; 86901; 86923; 93005; 93010; 94660; 94762; 96361; 96374; 99285-25; A9270; C8929; J1650; J3010; J7030; J7512; P9016; Q9957

== ENCOUNTER → 2023-02-28 | Outpatient (CLI) | payer OTHER ==
[2023-02-28 11:21] LABS: Albumin, Blood 3.6 g/dL (3.4-5.0); Albumin/Globulin Ratio 0.9 (0.8-1.8); Bilirubin, Total 0.6 mg/dL (0.1-1.0); Bun/Creatinine Ratio 23.1 (12.0-20.0); Calcium, Blood 9.2 mg/dL (8.5-10.1); Creatinine, Blood 1.08 mg/dL (0.60-1.20); Globulin, Blood 3.9 g/dL (2.2-4.0); Potassium, Blood 4.4 mmol/L (3.5-5.5); Total Protein, Blood 7.5 g/dL (6.4-8.2)
[2023-02-28 11:33] LABS: BASOPHILS ABSOLUTE AUTO 0.36 K/mm3 (0.00-0.23); BASOPHILS PERCENT AUTO 6 % (0-2); EOSINOPHILS ABSOLUTE AUTO 0.73 K/mm3 (0.00-0.68); EOSINOPHILS PERCENT AUTO 13 % (0-6); Hematocrit 42.6 % (37.0-53.0); Hemoglobin 13.8 g/dL (13.5-17.5); IMMATURE GRAN ABSOLUTE AUTO 0.02 K/mm3 (0.00-0.10); IMMATURE GRAN PERCENT AUTO 0 % (0-1); LYMPHOCYTES ABSOLUTE AUTO 1.91 K/mm3 (0.84-5.20); LYMPHOCYTES PERCENT AUTO 33 % (21-46); MONOCYTES ABSOLUTE AUTO 0.95 K/mm3 (0.16-1.47); MONOCYTES PERCENT AUTO 16 % (4-13); Mean Corpuscular HGB Conc 32.4 g/dL (31.5-36.5); Mean Corpuscular Volume 102 fL (80-100); Mean Platelet Volume 10.9 fL (9.1-12.4); NEUTROPHILS ABSOLUTE AUTO 1.87 K/mm3 (1.96-9.15); NEUTROPHILS PERCENT AUTO 32 % (41-73); Platelet Count 482 K/mm3 (150-400); RDW Coefficient Variation 25.5 % (11.7-14.2); RDW Standard Deviation 91.7 fL (35.1-46.3); Red Blood Cell Count 4.18 M/mm3 (4.30-5.90); White Blood Cell Count 5.84 K/mm3 (4.00-11.30)
== END ==
LOC: LAB 10:00 → LAB SHORT 10:00
PROVIDERS: Internal Medicine Hematology & Oncology
DX: C93.10 Chronic myelomonocytic leukemia not having achieved remission (principal); C64.2 Malignant neoplasm of left kidney, except renal pelvis
CPT/HCPCS: 80053; 85025

== ENCOUNTER 2023-07-21 22:45 | Emergency (ER) | payer OTHER, MEDICARE ==
[~2023-07-21] VITALS: Ht 177.8 cm; Wt 88.5 kg
[2023-07-21 23:04] LABS: Hematocrit 28.2 % (37.0-53.0); Hemoglobin 9.5 g/dL (13.5-17.5); Mean Corpuscular HGB 32.5 pg (26.0-34.0); Mean Corpuscular HGB Conc 33.7 g/dL (31.5-36.5); Mean Corpuscular Volume 97 fL (80-100); NRBC Auto 22.1 /100 WBC (0.0-0.2); RDW Coefficient Variation 23.3 % (11.7-14.2); RDW Standard Deviation 78.6 fL (35.1-46.3); Red Blood Cell Count 2.92 M/mm3 (4.30-5.90)
[2023-07-21 23:18] LABS: Albumin, Blood 3.3 g/dL (3.4-5.0); Bilirubin, Total 0.6 mg/dL (0.1-1.0); Bun/Creatinine Ratio 25.5 (12.0-20.0); Calcium, Blood 8.9 mg/dL (8.5-10.1); Creatinine, Blood 1.06 mg/dL (0.60-1.20); Globulin, Blood 3.4 g/dL (2.2-4.0); Potassium, Blood 4.6 mmol/L (3.5-5.5); Total Protein, Blood 6.7 g/dL (6.4-8.2)
[2023-07-21 23:23] LABS: Platelet Count 32 K/mm3 (150-400)
[2023-07-21] MEDS ORDERED: ISOSORBIDE MONO30 MG PO (23:48)
[2023-07-21] MEDS ORDERED: RANOLAZINE ER500 M2 PO (23:48)
[2023-07-21] MEDS ORDERED: OMEP20ER PO (23:52)
[2023-07-22 00:24] LABS: BAND PERCENT MAN 6 % (0-8); BASOPHILS PERCENT MAN 0 % (0-2); BLASTS PERCENT MAN 3 % (0-0); EOSINOPHILS ABSOLUTE MAN 0.08 K/mm3 (0.00-0.68); EOSINOPHILS PERCENT MAN 1 % (0-6); LYMPHOCYTES % ATYPICAL MANUAL 1 % (0-0); LYMPHOCYTES PERCENT MAN 27 % (21-46); MONOCYTES PERCENT MAN 7 % (4-13); MYELOCYTE ABSOLUTE MAN 0.08 K/mm3 (0.00-0.00); MYELOCYTE PERCENT MAN 1 % (0-0); NEUTROPHILS ABSOLUTE MAN 5.16 K/mm3 (1.96-9.15); SEG NEUTROPHILS PERCENT MAN 54 % (41-73); TOTAL CELLS COUNTED 100
[2023-07-22 02:00] VITALS: BP 128/82
[2023-07-22] MEDS ORDERED: RX Prepack 6 Tabs Oxycodone 5mg UD ONE (02:40)
== END 2023-07-22 02:50 | disposition left against medical advice (07) ==
LOC: ER 22:45
PROVIDERS: Emergency Medicine
DX: R07.9 Chest pain, unspecified (principal); Z53.29 Procedure and treatment not carried out because of patient's decision for other reasons; R79.89 Other specified abnormal findings of blood chemistry; D64.9 Anemia, unspecified; D69.6 Thrombocytopenia, unspecified; I25.10 Atherosclerotic heart disease of native coronary artery without angina pectoris
CPT/HCPCS: 71046; 80053; 83690; 84484; 85025; 93005; 93010; 99285-25; A9270